=== PATIENT | male | born 1945 | race Caucasian/White ===

== ENCOUNTER 2019-11-30 13:27 | Outpatient (RCR) | payer OTHER | END 2019-11-30 17:00 | disposition home or self-care (01) | PROVIDERS: ATTEND Nurse Practitioner | DX: M25.552 Pain in left hip (principal); M54.5 Low back pain; M25.551 Pain in right hip; F32.9 Major depressive disorder, single episode, unspecified; I10 Essential (primary) hypertension; H91.90 Unspecified hearing loss, unspecified ear; G20 Parkinson's disease ==

== ENCOUNTER → 2020-07-04 | Outpatient (CLI) | payer OTHER | LOC: ORTHO 09:47 | PROVIDERS: ATTEND Orthopaedic Surgery | DX: M51.37 Other intervertebral disc degeneration, lumbosacral region (principal); M16.12 Unilateral primary osteoarthritis, left hip; M17.0 Bilateral primary osteoarthritis of knee ==

== ENCOUNTER 2020-07-28 10:16 | Outpatient (RCR) | payer OTHER | END 2020-07-28 11:01 | disposition home or self-care (01) | PROVIDERS: ATTEND Nurse Practitioner | DX: M25.561 Pain in right knee (principal); M54.16 Radiculopathy, lumbar region; Z98.890 Other specified postprocedural states; Z85.89 Personal history of malignant neoplasm of other organs and systems ==

== ENCOUNTER 2021-08-03 17:10 | Observation (INO) | payer OTHER, MEDICARE ==
[~2021-08-03] VITALS: Ht 180.4 cm; Wt 86.1 kg
[2021-08-03 17:44] LABS: BASOPHILS # (AUTO) 0.1 10^3/uL (0.0-0.1); BASOPHILS % (AUTO) 1 % (0-10); EOSINOPHILS # (AUTO) 0.4 10^3/uL (0.0-0.3); EOSINOPHILS % (AUTO) 4 % (0-10); HEMATOCRIT 49 % (40-54); HEMOGLOBIN 16.9 g/dL (13.3-17.7); LYMPHOCYTES # (AUTO) 2.6 10^3/uL (1.0-4.0); LYMPHOCYTES % (AUTO) 25 % (12-44); MEAN CORPUSCULAR HEMOGLOBIN 34 pg (25-34); MEAN CORPUSCULAR HGB CONC 35 g/dL (32-36); MEAN CORPUSCULAR VOLUME 96 fL (80-99); MEAN PLATELET VOLUME 9.7 fL (9.0-12.2); MONOCYTES # (AUTO) 0.8 10^3/uL (0.0-1.0); MONOCYTES % (AUTO) 8 % (0-12); NEUTROPHILS # (AUTO) 6.8 10^3/uL (1.8-7.8); NEUTROPHILS % (AUTO) 63 % (42-75); PLATELET COUNT 228 10^3/uL (130-400); WHITE BLOOD COUNT 10.7 10^3/uL (4.3-11.0)
--- NOTE | 2021-08-03 17:44 | ED Cardiac General ---
History of Present Illness General Chief Complaint: Cardiac/General Problems Stated Complaint: HIGH BLOOD PRESSURE, RAPID HEART RATE, DIZZINESS Source: patient Exam Limitations: no limitations History of Present Illness Date Seen by Provider: Aug 03, 2021 Time Seen by Provider: 17:27 Initial Comments Patient to the ER by private conveyance with his daughter and chief complaint that he has had some rapid racing heart rate since yesterday when he got a booster shot of Moderna, COVID-19 vaccine. He feels weak tired and like his heart is racing. No chest pain nausea fever chills body aches, or sick contacts. 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 He says he has a thoracic aortic aneurysm that nobody is following. He does not see a networks software consultant. He has no heart history. No history of atrial fibrillation. Not on a blood thinner. He is on medicines for blood pressure, hyperlipidemia, bupropion for PTSD related to [place]. Allergies and Home Medications Allergies Coded Allergies: Vyqewds-XTH-EgA Reductase Inhibitor (Verified Allergy, Unknown, 08/03/21) baclofen (Verified Allergy, Unknown, 08/03/21) Patient Home Medication List Home Medication List Reviewed: Yes Review of Systems Review of Systems Constitutional: No chills, No diaphoresis EENTM: No Blurred Vision, No Double Vision Respiratory: Denies Cough, Denies Orthopnea; Shortness of Air Cardiovascular: Denies Chest Pain; Irregular Heart Rate; Denies Lightheadedness; Palpitations Gastrointestinal: Denies Constipated, Denies Diarrhea, Denies Nausea Genitourinary: Denies Burning, Denies Discharge Musculoskeletal: No back pain, No joint pain Skin: No pruritus, No rash Psychiatric/Neurological: Denies Headache, Denies Numbness All Other Systems Reviewed Negative Unless Noted: Yes Past Dbgfeqc-Zesrit-Tqzlbk Hx Patient Social History Tobacco Use?: No Use of E-Cig and/or Vaping dev: No Substance use?: No Physical Exam Vital Signs Capillary Refill : Height, Weight, BMI Height: '" Weight: lbs. oz. kg; BMI Method: General Appearance: Anxious, Moderate Distress HEENT: PERRL/EOMI, Pharynx Normal, Moist Mucous Membranes Neck: Full Range of Motion, Normal Inspection Respiratory: Lungs Clear, Normal Breath Sounds, No Accessory Muscle Use, No Respiratory Distress Cardiovascular: No No Edema (Trace bipedal edema); Normal Peripheral Pulses, Irregularly Irregular, Tachycardia Gastrointestinal: Normal Bowel Sounds, Non Tender, Soft Extremity: Normal Capillary Refill, Normal Inspection, Pedal Edema (Trace bilateral) Neurologic/Psychiatric: Alert, Oriented x3, Other (Anxious affect) Skin: Normal Color, Warm/Dry Progress/Results/Core Measures Results/Orders Lab Results Laboratory Tests Test 08/03/21 17:25 Range/Units White Blood Count 10.7 4.3-11.0 10^3/uL Red Blood Count 5.05 4.30-5.52 10^6/uL Hemoglobin 16.9 13.3-17.7 g/dL Hematocrit 49 40-54 % Mean Corpuscular Volume 96 80-99 fL Mean Corpuscular Hemoglobin 34 25-34 pg Mean Corpuscular Hemoglobin Concent 35 32-36 g/dL Red Cell Distribution Width 12.3 10.0-14.5 % Platelet Count 228 130-400 10^3/uL Mean Platelet Volume 9.7 9.0-12.2 fL Immature Granulocyte % (Auto) 0 % Neutrophils (%) (Auto) 63 42-75 % Lymphocytes (%) (Auto) 25 12-44 % Monocytes (%) (Auto) 8 0-12 % Eosinophils (%) (Auto) 4 0-10 % Basophils (%) (Auto) 1 0-10 % Neutrophils # (Auto) 6.8 1.8-7.8 10^3/uL Lymphocytes # (Auto) 2.6 1.0-4.0 10^3/uL Monocytes # (Auto) 0.8 0.0-1.0 10^3/uL Eosinophils # (Auto) 0.4 H 0.0-0.3 10^3/uL Basophils # (Auto) 0.1 0.0-0.1 10^3/uL Immature Granulocyte # (Auto) 0.0 0.0-0.1 10^3/uL Sodium Level 141 135-145 MMOL/L Potassium Level 3.9 3.6-5.0 MMOL/L Chloride Level 104 98-107 MMOL/L Carbon Dioxide Level 24 21-32 MMOL/L Anion Gap 13 5-14 MMOL/L Blood Urea Nitrogen 28 H 7-18 MG/DL Creatinine 1.02 0.60-1.30 MG/DL Estimat Glomerular Filtration Rate 72 BUN/Creatinine Ratio 27 Glucose Level 145 H 70-105 MG/DL Calcium Level 9.7 8.5-10.1 MG/DL Corrected Calcium 9.5 8.5-10.1 MG/DL Total Bilirubin 0.6 0.1-1.0 MG/DL Aspartate Amino Transf (AST/SGOT) 22 5-34 U/L Alanine Aminotransferase (ALT/SGPT) < 6 0-55 U/L Alkaline Phosphatase 96 40-136 U/L Troponin I < 0.028 <0.028 NG/ML C-Reactive Protein High Sensitivity 0.16 0.00-0.50 MG/DL B-Type Natriuretic Peptide 130.3 H <100.0 PG/ML Total Protein 7.2 6.4-8.2 GM/DL Albumin 4.3 3.2-4.5 GM/DL My Orders Orders - DWIGHT AARON Continuous Ekg Monitoring (08/03/21 17:13) Ekg Tracing (08/03/21 17:13) Diltiazem Injection (Cardizem Injection) (08/03/21 17:32) Cbc With Automated Diff (08/03/21 17:36) Comprehensive Metabolic Panel (08/03/21 17:36) Hs C Reactive Protein (08/03/21 17:36) Troponin I (08/03/21 17:36) BNP (08/03/21 17:36) Chest 1 View, Ap/Pa Only (08/03/21 17:36) Apixaban Tablet (Eliquis Tablet) (08/03/21 17:45) Diltiazem Drip Pre-Mix (Cardizem Drip Pr (08/03/21 17:45) Diltiazem Injection (Cardizem Injection) (08/03/21 17:45) Medications Given in ED Current Medications Medications Dose Ordered Sig/[place] Route Start Time Stop Time Status Last Admin Dose Admin Apixaban 5 mg ONCE ONCE PO 08/03/21 17:45 08/03/21 17:46 DC 08/03/21 18:01 5 MG Diltiazem HCl 10 mg ONCE ONCE IVP 08/03/21 17:45 08/03/21 17:46 DC 08/03/21 17:44 10 MG Progress Progress Note : Time: 17:43 Progress Note Initial blood pressures were in the 160s coming down to 130 systolic. We will give him 10 mg Cardizem bolus followed by 10 mg/h Cardizem drip. Eliquis 5 mg. A liter of normal saline. We did discuss management of novel atrial fibrillation with rapid ventricular response with the patient and he agrees to interventions and staying in the hospital overnight. Initial ECG Impression Date: Aug 03, 2021 Initial ECG Impression Time: 17:20 Initial ECG Rate: 122 Initial ECG Rhythm: Normal Sinus Initial ECG Intervals: QT (555) Initial ECG Impression: Normal Initial ECG Comparisson: No Previous ECG Available Comment Atrial flutter with rapid ventricular response. Prolonged QTC Diagnostic Imaging Diagonstic Imaging: Xray Plain Films/CT/US/NM/MRI: chest Comments [facility] [place] NAME: LAWRENCE DIAZ JR [facility] REC#: [id number] PT STATUS: ADM Kimberly : 1945 PHYSICIAN: DWIGHT AARON MD ADMIT DATE: 08/03/21/ICU Draft Date of Exam:08/03/21 CHEST 1 VIEW, AP/PA ONLY INDICATION: Shortness of air, tachycardia. COMPARISON: None available. TECHNIQUE: Single frontal radiograph of the chest dated August 03, 2021. FINDINGS: The cardiac silhouette is mildly enlarged. No significant pulmonary vascular congestion. Tortuosity of the descending thoracic aorta. Postsurgical changes are noted within the cervicothoracic spine. Senescent changes of the lungs without focal pulmonary opacity. No significant pleural effusion. No pneumothorax. Scattered osseous degenerative changes without acute osseous abnormality. IMPRESSION: 1. Mild cardiomegaly without overt congestive heart failure. 2. Senescent changes of the lungs without additional superimposed acute cardiopulmonary abnormality. Dictated on workstation # [id number] Dict: 08/03/21 1803 Trans: 08/03/21 1810 PJE [id number] Interpreted by: REMINGTON COYNE MD Electronically signed by: Reviewed: Reviewed by Me Departure Communication (Admissions) Time/Spoke to Admitting Phy: 17:45 1745: Left voicemail 1755: Discussed the case with Dr. Gaxiola and she agrees to observe the patient in the ICU with cardiac consultation. Time/Spoke to Consulting Phy: 17:44 Discussed the case with Dr. Fitch, cardiology and he agrees to consult on the case. Impression Primary Impression: Atrial fibrillation with rapid ventricular response Disposition: ADMITTED INPATIENT Condition: Stable Admissions Decision to Admit Reason: Admit from ER (General) Decision to Admit/Date: Aug 03, 2021 Time/Decision to Admit Time: 17:44 Departure-Patient Inst. Referrals: JAMES STRICKLAND (PCP) Primary Care Physician DWIGHT AARON Aug 03, 2021 17:44
[2021-08-03] MEDS ORDERED: dilTIAZem DRIP PRE-MIX 125 ML IV SCH ×2 (17:45→19:45)
[2021-08-03] MEDS ORDERED: APIXABAN 5 MG (ELIQUIS) TABLET PO ONE (17:45)
[2021-08-03 17:55] LABS: ALANINE AMINOTRANSFERASE < 6 U/L (0-55); ALBUMIN 4.3 GM/DL (3.2-4.5); ALKALINE PHOSPHATASE 96 U/L (40-136); BILIRUBIN,TOTAL 0.6 MG/DL (0.1-1.0); BUN/CREATININE RATIO 27; CALCIUM 9.7 MG/DL (8.5-10.1); CARBON DIOXIDE 24 MMOL/L (21-32); CHLORIDE 104 MMOL/L (98-107); CREATININE SERUM 1.02 MG/DL (0.60-1.30); GFR ESTIMATED 72; GLUCOSE 145 MG/DL (70-105); POTASSIUM 3.9 MMOL/L (3.6-5.0); SODIUM 141 MMOL/L (135-145); TOTAL PROTEIN 7.2 GM/DL (6.4-8.2)
--- NOTE | 2021-08-03 18:10 | Diagnostic Imaging Report ---
INDICATION: Shortness of air, tachycardia. COMPARISON: None available. TECHNIQUE: Single frontal radiograph of the chest dated August 03, 2021. FINDINGS: The cardiac silhouette is mildly enlarged. No significant pulmonary vascular congestion. Tortuosity of the descending thoracic aorta. Postsurgical changes are noted within the cervicothoracic spine. Senescent changes of the lungs without focal pulmonary opacity. No significant pleural effusion. No pneumothorax. Scattered osseous degenerative changes without acute osseous abnormality. IMPRESSION: 1. Mild cardiomegaly without overt congestive heart failure. 2. Senescent changes of the lungs without additional superimposed acute cardiopulmonary abnormality. Dictated by: Dictated on workstation # [id number]
[2021-08-03] MEDS ORDERED: CATHETER FLUSH 10 ML SYR IV PRN (19:45)
[2021-08-03] MEDS ORDERED: LORazepam 1 MG (ATIVAN) TAB PO PRN (19:45)
[2021-08-03] MEDS ORDERED: ACETAMINOPHEN 325 MG TABLET PO PRN (19:45)
[2021-08-03] MEDS ORDERED: ONDANSETRON 4 MG/2 ML (SDV) Z0FRAN IV PRN (19:45)
[2021-08-03] MEDS: APIXABAN 5 MG (ELIQUIS) TABLET PO SCH (21:26)
[2021-08-03] MEDS: CATHETER FLUSH 10 ML SYR IV SCH (22:00)
[2021-08-04] MEDS ORDERED: QUET25TA35 PO ×2 (00:47→11:29)
[2021-08-04] MEDS ORDERED: PRAZ1CAP2 PO ×2 (00:47→11:29)
[2021-08-04] MEDS ORDERED: MEMA10TA57 PO ×2 (00:47→11:29)
[2021-08-04] MEDS ORDERED: MULT400T15 PO (00:47)
[2021-08-04] MEDS ORDERED: BUPR150T28 PO (00:47)
[2021-08-04] MEDS ORDERED: CYCL10TA9 PO ×2 (00:47→11:29)
[2021-08-04] MEDS ORDERED: TRAZ-227 PO ×2 (00:47→11:29)
[2021-08-04] MEDS ORDERED: PROM25TA14 PO (00:47)
[2021-08-04] MEDS ORDERED: VIT1CAPS44 PO ×2 (00:47→11:29)
[2021-08-04] MEDS ORDERED: ACET500S IV (00:47)
[2021-08-04] MEDS ORDERED: GBPN600T PO ×2 (00:47→11:29)
[2021-08-04] MEDS ORDERED: MIRT45TA75 PO ×2 (00:47→11:29)
[2021-08-04] MEDS ORDERED: CARB1TAB19 PO ×2 (00:47→11:29)
[2021-08-04] MEDS ORDERED: SENN-181 PO (00:47)
[2021-08-04] MEDS ORDERED: ASPI-1238 PO ×2 (00:47→11:29)
[2021-08-04] MEDS ORDERED: NAPR-915 PO ×2 (00:47→11:29)
[2021-08-04] MEDS ORDERED: OMEP20TA7 PO (00:47)
[2021-08-04] MEDS ORDERED: DONE10TA41 PO ×2 (00:47→11:29)
[2021-08-04] MEDS ORDERED: LORA10TA7 PO ×2 (00:47→11:29)
[2021-08-04] MEDS ORDERED: SERT-414 PO ×2 (00:47→11:29)
[2021-08-04] MEDS ORDERED: ARIP5TAB57 PO (00:47)
[2021-08-04] MEDS ORDERED: TMSL.4C PO ×2 (00:47→11:29)
[2021-08-04] MEDS ORDERED: METO50TA15 PO ×2 (00:47→11:29)
[2021-08-04] MEDS ORDERED: [UNRECOGNIZED DRUG - CODE] PO (00:47)
[2021-08-04] MEDS ORDERED: ATOR20TA66 PO ×2 (00:47→11:29)
[2021-08-04] MEDS ORDERED: CYAN100088 PO (00:47)
[2021-08-04] MEDS ORDERED: FOLI0.4T6 PO ×2 (00:47→11:29)
[2021-08-04] MEDS ORDERED: FAMO20TA3 PO ×2 (00:47→11:29)
[2021-08-04] MEDS ORDERED: POTA-51 PO ×2 (00:47→11:29)
[2021-08-04 05:13] LABS: BASOPHILS # (AUTO) 0.1 10^3/uL (0.0-0.1); BASOPHILS % (AUTO) 1 % (0-10); EOSINOPHILS # (AUTO) 0.5 10^3/uL (0.0-0.3); EOSINOPHILS % (AUTO) 6 % (0-10); HEMATOCRIT 45 % (40-54); LYMPHOCYTES # (AUTO) 2.5 10^3/uL (1.0-4.0); LYMPHOCYTES % (AUTO) 29 % (12-44); MEAN CORPUSCULAR HEMOGLOBIN 33 pg (25-34); MEAN CORPUSCULAR HGB CONC 33 g/dL (32-36); MEAN CORPUSCULAR VOLUME 99 fL (80-99); MEAN PLATELET VOLUME 9.8 fL (9.0-12.2); MONOCYTES # (AUTO) 0.7 10^3/uL (0.0-1.0); MONOCYTES % (AUTO) 8 % (0-12); NEUTROPHILS # (AUTO) 4.9 10^3/uL (1.8-7.8); NEUTROPHILS % (AUTO) 56 % (42-75); PLATELET COUNT 187 10^3/uL (130-400); WHITE BLOOD COUNT 8.7 10^3/uL (4.3-11.0)
[2021-08-04 05:29] LABS: ALBUMIN 3.7 GM/DL (3.2-4.5); BILIRUBIN,TOTAL 0.6 MG/DL (0.1-1.0); CALCIUM 8.9 MG/DL (8.5-10.1); CREATININE SERUM 0.91 MG/DL (0.60-1.30); PHOSPHORUS 2.6 MG/DL (2.3-4.7); TOTAL PROTEIN 6.1 GM/DL (6.4-8.2)
[2021-08-04] MEDS: CATHETER FLUSH 10 ML SYR IV SCH ×2 (06:05→14:41)
[2021-08-04] MEDS: APIXABAN 5 MG (ELIQUIS) TABLET PO SCH (08:42)
--- NOTE | 2021-08-04 08:42 | Consultation-Cardiology ---
HPI-Cardiology Cardiology Consultation: Date of Consultation 08/04/21 Time Seen by a Provider: 08:15 Date of Admission 08-03-21 Attending Physician Julisa Gaxiola MD Admitting Physician Muriel Villalobos Consulting Physician Nat Fitch MD HPI: Chief Complaint: New onset a-flutter with RVR Mr. Diaz is a 75 yr old male admitted to ICU 5 from the ED with new onset a- flutter with RVR. He has converted to SR. He reports yesterday he was at home when he began to have palpitations. He states he felt weak and SOB at the time. He reports having chest pressure at the time. No syncope or near syncope. No c/o n/v/d. No c/o LE swelling. [facility] [place] [place] He reports he is feeling well at this time. His daughter is at the bedside. Review of Systems-Cardiology Review of Systems Constitutional: No chills, No fever; lightheadedness; No malaise Eyes: No vision change Ears/Nose/Throat: No epistaxis, No recent hearing loss Respiratory: As described under HPI Cardiovascular: As described under HPI Gastrointestinal: No constipation, No diarrhea, No nausea, No vomiting Genitourinary: No dysuria Musculoskeletal: back pain (chronic) Skin: No rash on exposed areas, No ulcerations on exposed areas Psychiatric/Neurological: anxiety; No depression, No seizure, No focal weakness, No syncope All Other Systems Reviewed Negative Unless Noted: Yes XQQ-Yanayf-Jvlcso Hx Patient Social History Smoking Status: Former Smoker Have you traveled recently?: No Alcohol Use?: No Pt feels they are or have been: Yes Tobacco type used: Cigarettes Past Medical History PMH As described under Assessment. Family Medical History Family Medical History: He reports his mother had an CO. He reports his father had a h/o CVA. He reports children x3 with DM. Allergies and Home Medications Allergies Coded Allergies: Vtvmrkx-DDK-HbM Reductase Inhibitor (Verified Allergy, Unknown, 08/03/21) baclofen (Verified Allergy, Unknown, 08/03/21) Patient Home Medication List Acetaminophen (Acetaminophen) 500 Mg/50 Ml Syringe, 500 MG IV TID PRN for PAIN- MILD (1-4) OR TEMPATURE, (Reported) Entered as Reported by: SAUL COREAS on 08/04/2146 Last Action: New Order Aripiprazole (Aripiprazole) 5 Mg Tablet, 7.5 MG PO HS, (Reported) Entered as Reported by: SAUL COREAS on 08/04/2146 Last Action: Last Taken Edited Aspirin (Aspirin EC) 81 Mg Tablet.dr, 81 MG PO DAILY, (Reported) Entered as Reported by: SAUL COREAS on 08/04/2146 Last Action: New Order Atorvastatin Calcium (Atorvastatin Calcium) 20 Mg Tablet, 30 MG PO HS, (Reported) Entered as Reported by: SAUL COREAS on 08/04/2146 Last Action: New Order Bupropion HCl (Bupropion HCl Sr) 150 Mg Tablet.er, 150 MG PO DAILY, (Reported) Entered as Reported by: SAUL COREAS on 08/04/2146 Last Action: New Order Carbidopa/Levodopa (Carbidopa-Levodopa 25-100 Tab) 1 Each Tablet, 1 EACH PO QID, (Reported) Entered as Reported by: SAUL COREAS on 08/04/2146 Last Action: Last Taken Edited Cyanocobalamin (Vitamin B-12) (B-12) 1,000 Mcg Tablet, 1,000 MCG PO DAILY, (Reported) Entered as Reported by: SAUL COREAS on 08/04/2146 Last Action: New Order Cyclobenzaprine HCl (Cyclobenzaprine HCl) 10 Mg Tablet, 10 MG PO BID PRN for MUSCLE SPASMS, (Reported) Entered as Reported by: SAUL COREAS on 08/04/2146 Last Action: New Order Donepezil HCl (Donepezil HCl) 10 Mg Tablet, 15 MG PO DAILY, (Reported) Entered as Reported by: SAUL COREAS on 08/04/2146 Last Action: New Order Famotidine (Acid Postal Clerk (FAMOTIDINE)) 20 Mg Tablet, 20 MG PO BID, (Reported) Entered as Reported by: SAUL COREAS on 08/04/2146 Last Action: New Order Folic Acid (Folic Acid) 0.4 Mg Tablet, 0.4 MG PO DAILY, (Reported) Entered as Reported by: SAUL COREAS on 08/04/2146 Last Action: New Order Gabapentin (Gabapentin) 600 Mg Tablet, 600 MG PO BID, (Reported) Entered as Reported by: SAUL COREAS on 08/04/2146 Last Action: New Order Loratadine (Loratadine) 10 Mg Tablet, 10 MG PO DAILY PRN for Allergies, (Reported) Entered as Reported by: SAUL COREAS on 08/04/2146 Last Action: New Order Memantine HCl (Memantine HCl) 10 Mg Tablet, 10 MG PO BID, (Reported) Entered as Reported by: SAUL COREAS on 08/04/2146 Last Action: New Order Metoprolol Tartrate (Metoprolol Tartrate) 50 Mg Tablet, 50 MG PO BID, (Reported) Entered as Reported by: SAUL COREAS on 08/04/2146 Last Action: New Order Mirtazapine (Mirtazapine) 45 Mg Tablet, 45 MG PO HS, (Reported) Entered as Reported by: SAUL COREAS on 08/04/2146 Last Action: New Order Multivitamin with Folic Acid (Tab-A-Sammy Tablet) 400 Mcg Tablet, 400 MCG PO DAILY, (Reported) Entered as Reported by: SAUL COREAS on 08/04/2146 Last Action: New Order Naproxen (Naproxen) 500 Mg Tablet, 500 MG PO Q12H, (Reported) Entered as Reported by: SAUL COREAS on 08/04/2146 Last Action: New Order Beverly-3/Dha/Epa/Fish Oil (Ultra Beverly-3 Softgel) 1 Each Capsule, 1 EACH PO DAILY, (Reported) Entered as Reported by: SAUL COREAS on 08/04/2146 Last Action: New Order Omeprazole (Omeprazole) 20 Mg Tablet.dr, 20 MG PO DAILY, (Reported) Entered as Reported by: SAUL COREAS on 08/04/2146 Last Action: New Order Potassium Chloride (Potassium Chloride) 20 Meq Tablet.er, 20 MEQ PO DAILY, (Reported) Entered as Reported by: SAUL COREAS on 08/04/2146 Last Action: New Order Prazosin HCl (Prazosin HCl) 1 Mg Capsule, 1 MG PO HS, (Reported) Entered as Reported by: SAUL COREAS on 08/04/2146 Last Action: New Order Promethazine HCl (Promethazine Tablet) 25 Mg Tablet, 25 MG PO Q8H PRN for NAUSEA /VOMITING, (Reported) Entered as Reported by: SAUL COREAS on 08/04/2146 Last Action: New Order Quetiapine Fumarate (Quetiapine Fumarate) 25 Mg Tablet, 25 MG PO HS, (Reported) Entered as Reported by: SAUL COREAS on 08/04/2146 Last Action: New Order Sennosides/Docusate Sodium (Colace 2-in-1 Tablet) 1 Each Tablet, 2 EACH PO DAILY, (Reported) Entered as Reported by: SAUL COREAS on 08/04/2146 Last Action: New Order Sertraline HCl (Sertraline HCl) 100 Mg Tablet, 100 MG PO DAILY, (Reported) Entered as Reported by: SAUL COREAS on 08/04/2146 Last Action: New Order Tamsulosin HCl (Flomax) 0.4 Mg Cap, 0.4 MG PO HS, (Reported) Entered as Reported by: SAUL COREAS on 08/04/2146 Last Action: Last Taken Edited Trazodone HCl (Trazodone HCl) 100 Mg Tablet, 100 MG PO HS PRN for INSOMNIA, (Reported) Entered as Reported by: SAUL COREAS on 08/04/2146 Last Action: New Order Vit C/E/Zn/Coppr/Lutein/Zeaxan (Preservision Areds 2 Softgel) 1 Each Capsule, 1 EACH PO BID, (Reported) Entered as Reported by: SAUL COREAS on 08/04/2146 Last Action: New Order Physical Exam-Cardiology Physical Exam Vital Signs/I&O 08/03/21 08/03/21 08/03/21 08/03/21 20:45 21:00 21:15 21:30 Pulse 73 61 67 67 Resp 32 16 11 6 B/P (MAP) 132/91 130/82 133/83 132/90 Pulse Ox 97 100 97 97 O2 Delivery Room Air 08/03/21 08/03/21 08/03/21 08/03/21 21:45 22:00 22:15 22:30 Pulse 65 58 68 68 Resp 7 15 22 12 B/P (MAP) 148/81 123/91 124/84 113/72 Pulse Ox 94 96 93 92 O2 Delivery Room Air 08/03/21 08/03/21 08/03/21 08/03/21 22:45 23:00 23:13 23:15 Temp 36.0 Pulse 65 62 64 Resp 10 16 13 B/P (MAP) 102/72 94/64 86/60 Pulse Ox 92 93 91 O2 Delivery Room Air 08/03/21 08/03/21 08/03/21 08/04/21 23:30 23:45 23:59 00:00 Pulse 68 71 72 Resp 13 14 14 B/P (MAP) 94/66 109/71 Pulse Ox 92 93 94 O2 Delivery Room Air Room Air 08/04/21 08/04/21 08/04/21 08/04/21 00:15 00:30 00:45 01:00 Pulse 68 68 68 68 Resp 12 8 15 15 B/P (MAP) 109/71 96/68 119/74 101/68 Pulse Ox 94 94 95 93 O2 Delivery Room Air 08/04/21 08/04/21 08/04/21 08/04/21 01:00 01:15 01:30 01:45 Pulse 70 68 76 68 Resp 13 15 15 B/P (MAP) 101/68 121/74 120/71 Pulse Ox 93 94 93 08/04/21 08/04/21 08/04/21 08/04/21 02:00 02:15 02:30 02:34 Pulse 68 67 65 Resp 15 11 22 B/P (MAP) 109/73 109/73 89/62 88/67 Pulse Ox 93 94 92 O2 Delivery Room Air 08/04/21 08/04/21 08/04/21 08/04/21 03:00 03:15 03:30 03:45 Pulse 63 65 65 66 Resp 12 13 13 11 B/P (MAP) 116/76 116/76 108/70 110/71 Pulse Ox 92 91 93 95 O2 Delivery Room Air 08/04/21 08/04/21 08/04/21 08/04/21 04:00 04:00 04:15 04:30 Pulse 70 66 64 Resp 13 14 13 B/P (MAP) 103/58 103/58 101/58 Pulse Ox 95 93 92 O2 Delivery Room Air Room Air 08/04/21 08/04/21 08/04/21 08/04/21 04:45 05:00 05:15 05:30 Pulse 65 62 66 Resp 13 13 12 B/P (MAP) 143/80 124/70 124/70 128/68 Pulse Ox 95 95 96 O2 Delivery Room Air 08/04/21 08/04/21 08/04/21 08/04/21 05:45 06:00 06:15 06:30 Pulse 80 66 68 63 Resp 22 13 14 10 B/P (MAP) 128/65 132/74 135/81 113/76 Pulse Ox 97 96 94 95 O2 Delivery Room Air 08/04/21 08/04/21 08/04/21 08/04/21 06:45 07:00 07:00 07:15 Pulse 70 64 63 62 Resp 7 11 13 B/P (MAP) 129/76 126/67 118/63 Pulse Ox 94 95 93 O2 Delivery Room Air 08/04/21 08/04/21 08/04/21 08/04/21 07:30 07:45 08:00 08:02 Temp 36.5 Pulse 61 61 Resp 11 12 B/P (MAP) 103/61 108/59 Pulse Ox 91 91 O2 Delivery Room Air 08/04/21 00:00 Intake Total 275 ml Output Total 0 ml Balance 275 ml Capillary Refill : Less Than 3 Seconds Constitutional: AAO x 3, well-developed, well-nourished HEENT: PERRL, hearing is well preserved, oral hygience is good Neck: No carotid bruit; carotid pulses are 2 + bilaterally Respiratory: No accessory muscle use, No respiratory distress; chest expansion is symmetric, chest is bilaterally symmetric, rhonchi (scattered) Cardiovascular: regular rate-rhythm; No JVD; S1 and S2 Gastrointestinal: No tender; soft, round, audible bowel sounds Extremities: no lower extremity edema bilateral Neurologic/Psychiatric: grossly intact (moves all extremities) Skin: No rash on exposed areas, No ulcerations on exposed areas Data Review Labs Laboratory Tests 08/03/21 17:25: White Blood Count 10.7, Red Blood Count 5.05, Hemoglobin 16.9, Hematocrit 49, M ml Corpuscular Volume 96, Mean Corpuscular Hemoglobin 34, Mean Corpuscular Hemoglobin Concent 35, Red Cell Distribution Width 12.3, Platelet Count 228, Mean Platelet Volume 9.7, Immature Granulocyte % (Auto) 0, Neutrophils (%) (Auto) 63, Lymphocytes (%) (Auto) 25, Monocytes (%) (Auto) 8, Eosinophils (%) (Auto) 4, Basophils (%) (Auto) 1, Neutrophils # (Auto) 6.8, Lymphocytes # (Auto) 2.6, Monocytes # (Auto) 0.8, Eosinophils # (Auto) 0.4H, Basophils # (Auto) 0.1, Immature Granulocyte # (Auto) 0.0, Sodium Level 141, Potassium Level 3.9, Chloride Level 104, Carbon Dioxide Level 24, Anion Gap 13, Blood Urea Nitrogen 28H, Creatinine 1.02, Estimat Glomerular Filtration Rate 72, BUN/Creatinine Ratio 27, Glucose Level 145H, Calcium Level 9.7, Corrected Calcium 9.5, Total Bilirubin 0.6, Aspartate Amino Transf (AST/SGOT) 22, Alanine Aminotransferase (ALT/SGPT) < 6, Alkaline Phosphatase 96, Troponin I < 0.028, C-Reactive Protein High Sensitivity 0.16, B-Type Natriuretic Peptide 130.3H, Total Protein 7.2, Albumin 4.3 08/04/21 04:45: White Blood Count 8.7, Red Blood Count 4.55, Hemoglobin 15.0, Hematocrit 45, Mean Corpuscular Volume 99, Mean Corpuscular Hemoglobin 33, Mean Corpuscular Hemoglobin Concent 33, Red Cell Distribution Width 12.7, Platelet Count 187, Mean Platelet Volume 9.8, Immature Granulocyte % (Auto) 0, Neutrophils (%) (Auto) 56, Lymphocytes (%) (Auto) 29, Monocytes (%) (Auto) 8, Eosinophils (%) (Auto) 6, Basophils (%) (Auto) 1, Neutrophils # (Auto) 4.9, Lymphocytes # (Auto) 2.5, Monocytes # (Auto) 0.7, Eosinophils # (Auto) 0.5H, Basophils # (Auto) 0.1, Immature Granulocyte # (Auto) 0.0, Sodium Level 140, Potassium Level 4.0, Chloride Level 105, Carbon Dioxide Level 24, Anion Gap 11, Blood Urea Nitrogen 27H, Creatinine 0.91, Estimat Glomerular Filtration Rate 82, BUN/Creatinine Ratio 30, Glucose Level 103, Calcium Level 8.9, Corrected Calcium 9.1, Total Bilirubin 0.6, Aspartate Amino Transf (AST/SGOT) 21, Alanine Aminotransferase (ALT/SGPT) 14, Alkaline Phosphatase 79, Total Protein 6.1L, Albumin 3.7, Phosphorus Level 2.6, Magnesium Level 2.0 Laboratory Tests 08/03/21 17:25 08/04/21 04:45 Radiology NAME: LAWRENCE DIAZ [facility] REC#: [id number] PT STATUS: ADM Kimberly : 1945 PHYSICIAN: DWIGHT AARON MD ADMIT DATE: 08/03/21/ICU Signed Date of Exam:08/03/21 CHEST 1 VIEW, AP/PA ONLY INDICATION: Shortness of air, tachycardia. COMPARISON: None available. TECHNIQUE: Single frontal radiograph of the chest dated August 03, 2021. FINDINGS: The cardiac silhouette is mildly enlarged. No significant pulmonary vascular congestion. Tortuosity of the descending thoracic aorta. Postsurgical changes are noted within the cervicothoracic spine. Senescent changes of the lungs without focal pulmonary opacity. No significant pleural effusion. No pneumothorax. Scattered osseous degenerative changes without acute osseous abnormality. IMPRESSION: 1. Mild cardiomegaly without overt congestive heart failure. 2. Senescent changes of the lungs without additional superimposed acute cardiopulmonary abnormality. Dictated by: Dictated on workstation # [id number] Dict: 08/03/211802 Trans: 08/03/21 185 PJE [id number] Interpreted by: REMINGTON COYNE MD Electronically signed by: REMINGTON COYNE MD 08/03/21 ECG Impression ECG Initial ECG Impression: Atrial Fibrillation w/RVR A/P-Cardiology Assessment/Admission Diagnosis A-flutter with RVR - first dx on ECG of 08-03-2021 at the [facility] ED - converted to SR - OAC with Eliquis initiated on 08-03-21 DANETTE - CPAP tx - has not been compliant the last month per pt report HTN - controlled HLD - statin tx - [facility] G[facility]D - PPI tx Tobaccoism - 1-2 cigs per day - cessation advised 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
--- NOTE | 2021-08-04 08:46 | Tele-ICU Progress Note ---
Subjective Date Seen by a Provider: Aug 04, 2021 Time Seen by a Provider: 07:30 Subjective/Events-last exam This virtual visit was conducted using real time audio/video. Thank you for asking us to see this patient for afib/RVR, no previous afib hx. HPC: Recent events: Converted to NSR. PE: VSS HR 62 NSR. O2 sat 93% on RA HEENT: No obvious masses, adenopathy or JVD. Chest: clear to auscultation. CV: RRR S1 S2 No murmur or added sounds. Abd: Non-tender. Bowel sounds Y. : Unremarkable. Peña N. INTERNET ARCHITECT/psychiatric: Alert and oriented, grossly intact. No obvious focal findings. Extremities: No edema. Capillary refill < 3 seconds. Skin: unremarkable. Results: Elevated BUN 27, BNP 130.3. CXR clear. A/P: Afib converted. Available chart/ vitals / labs / images reviewed. Video assessment done using teleICU camera, rest of exam as per RN. Critical Care: critically ill patient. Preston D/Cd, on [facility]. Consider transfer. Discussed with TYLER Santos. Asked RN to reach out to eICU if any questions or c oncerns later. Time spent with patient/coordination of care with other health professionals (mins): 15 From: Anthony Brown MD Sepsis Event Evaluation Height, Weight, BMI Height: '" Weight: lbs. oz. kg; 26.27 BMI Method: Exam Exam Patient acknowledged, consented, and participated in this virtual visit which was conducted using real time audio/video Vital Signs Date Time Temp Pulse Resp B/P (MAP) Pulse Ox O2 Delivery O2 Flow Rate FiO2 08/04/21 08:02 Room Air 08/04/21 08:00 36.5 08/04/21 07:45 61 12 108/59 91 08/04/21 07:30 61 11 103/61 91 08/04/21 07:15 62 13 118/63 93 08/04/21 07:00 63 11 126/67 95 Room Air 08/04/21 07:00 64 08/04/21 06:45 70 7 129/76 94 08/04/21 06:30 63 10 113/76 95 08/04/21 06:15 68 14 135/81 94 08/04/21 06:00 66 13 132/74 96 Room Air 08/04/21 05:45 80 22 128/65 97 08/04/21 05:30 66 12 128/68 96 08/04/21 05:15 124/70 08/04/21 05:00 62 13 124/70 95 Room Air 08/04/21 04:45 65 13 143/80 95 08/04/21 04:30 64 13 101/58 92 08/04/21 04:15 66 14 103/58 93 08/04/21 04:00 Room Air 08/04/21 04:00 70 13 103/58 95 Room Air 08/04/21 03:45 66 11 110/71 95 08/04/21 03:30 65 13 108/70 93 08/04/21 03:15 65 13 116/76 91 08/04/21 03:00 63 12 116/76 92 Room Air 08/04/21 02:34 65 22 88/67 92 08/04/21 02:30 67 11 89/62 94 08/04/21 02:15 109/73 08/04/21 02:00 68 15 109/73 93 Room Air 08/04/21 01:45 68 15 120/71 93 08/04/21 01:30 76 15 121/74 94 08/04/21 01:15 68 13 101/68 93 08/04/21 01:00 70 08/04/21 01:00 68 15 101/68 93 Room Air 08/04/21 00:45 68 15 119/74 95 08/04/21 00:30 68 8 96/68 94 08/04/21 00:15 68 12 109/71 94 08/04/21 00:00 72 14 109/71 94 Room Air 08/03/21 23:59 Room Air 08/03/21 23:45 71 14 94/66 93 08/03/21 23:30 68 13 92 08/03/21 23:15 64 13 86/60 91 08/03/21 23:13 36.0 08/03/21 23:00 62 16 94/64 93 Room Air 08/03/21 22:45 65 10 102/72 92 08/03/21 22:30 68 12 113/72 92 08/03/21 22:15 68 22 124/84 93 08/03/21 22:00 58 15 123/91 96 Room Air 08/03/21 21:45 65 7 148/81 94 08/03/21 21:30 67 6 132/90 97 08/03/21 21:15 67 11 133/83 97 08/03/21 21:00 61 16 130/82 100 Room Air 08/03/21 20:45 73 32 132/91 97 08/03/21 20:30 58 16 148/87 100 Room Air 08/03/21 20:15 51 14 136/86 97 Room Air 08/03/21 20:10 Room Air 08/03/21 20:00 59 16 125/83 97 Room Air 08/03/21 19:45 58 13 125/85 97 Room Air 08/03/21 19:30 65 20 156/89 96 Room Air 08/03/21 19:25 61 27 165/84 98 08/03/21 19:10 Room Air 08/03/21 19:00 64 08/03/21 18:21 66 18 120/89 96 Room Air 08/03/21 17:30 37.0 135 20 176/131 (146) 97 Room Air I & O 08/04/21 07:00 Intake Total 475 ml Output Total 0 ml Balance 475 ml Height & Weight Height: '" Weight: lbs. oz. kg; 26.27 BMI Method: General Appearance: No Apparent Distress, Anxious, Moderate Distress HEENT: PERRL/EOMI, Pharynx Normal, Moist Mucous Membranes Neck: Full Range of Motion, Normal Inspection Respiratory: Lungs Clear, Normal Breath Sounds, No Accessory Muscle Use, No Respiratory Distress Cardiovascular: No No Edema (Trace bipedal edema); Normal Peripheral Pulses, Irregularly Irregular, Tachycardia Capillary Refill: Less Than 3 Seconds Peripheral Pulses: 1+ Dorsalis Pedis (R), 1+ Left Dors-Pedis (L) Extremity: Normal Capillary Refill, Normal Inspection, Pedal Edema (Trace bilateral) Neurologic/Psychiatric: Alert, Oriented x3, Other (Anxious affect) Skin: Normal Color, Warm/Dry Results Lab Laboratory Tests 08/03/21 17:25 08/04/21 04:45 Assessment/Plan Assessment/Plan See free text. Critical Care: Critically Ill Patient ANTHONY BROWN MD Aug 04, 2021 08:46
--- NOTE | 2021-08-04 09:27 | Short Stay Summary-Hospitalist ---
History of Present Illness HPI/Chief Complaint Is a 75-year-old male with past medical history of hypertension, hyperlipidemia, PTSD who presented to the emergency department due to elevated blood pressure and racing heart rate. He states that on 08/02 he was in [place] the [place] and received a Moderna booster after having previously received a Zia & Zia Covid vaccine. Yesterday his home health aide came to set up his pills and check his vitals and noticed that his blood pressure was elevated and his heart rate was very fast. The aide recommended he seek evaluation in the emergency room. His heart rate was 35 on arrival and he was started on a Cardizem drip after completing a bolus. He was admitted to the ICU for further management. Last night he converted to sinus rhythm and has remained in sinus with good rate control. He has no complaints at this time and is requesting discharge home. Source: patient Date Seen 08/04/21 Time Seen by a Provider: 09:27 Attending Physician Ortiz Hernandez MD PCP Muriel Villalobos Referring Physician Date of Admission Aug 03, 2021 at 17:50 Home Medications & Allergies Home Medications Reviewed patient Home Medication Reconciliation performed by pharmacy medication reconciliations pharmacy picking technician and/or nursing. Patients Allergies have been reviewed. Allergies Allergies Coded Allergies Joyqphb-BYH-DkX Reductase Inhibitor (Verified Allergy, Unknown, 08/03/21) baclofen (Verified Allergy, Unknown, 08/03/21) Past Jcxnqnl-Mbaanr-Zqcwup Hx Patient Social History Tobacco Use?: Yes Tobacco type used: Cigarettes Smoking Status: Former Smoker Smokeless Tobacco Frequency: Never a User Use of E-Cig and/or Vaping dev: No Substance use?: No Alcohol Use?: No Pt feels they are or have been: Yes Immunizations Up To Date First/Initial COVID19 Vaccinat: 12/19/2020 Zia & Zia Second COVID19 Vaccination Eliazar: 08/02 Moderna Tetanus Booster (TDap): More Than 5 Years Hepatitis A: No Hepatitis B: Yes Current Status Advance Directives: No Communicates: Verbally Primary Language: Montenegrin Preferred Spoken Language: Montenegrin Is interpretation needed?: Patient declined Implanted or Applied Medical D: CPAP Past Medical History High Cholesterol, Hypertension PTSD Family Medical History Reviewed Nursing Family Hx No Pertinent Family Hx Review of Systems Constitutional: No chills, No fever EENTM: no symptoms reported Respiratory: no symptoms reported Cardiovascular: see HPI; No edema, No Hx of Intervention; palpitations Gastrointestinal: no symptoms reported Genitourinary: no symptoms reported Musculoskeletal: no symptoms reported Skin: no symptoms reported Psychiatric/Neurological: No Symptoms Reported Physical Exam Physical Exam Vital Signs Vital Signs - First Documented 08/03/21 17:30 Temp 37.0 Pulse 135 Resp 20 B/P (MAP) 176/131 (146) Pulse Ox 97 O2 Delivery Room Air Capillary Refill : Less Than 3 Seconds Height, Weight, BMI Height: '" Weight: lbs. oz. kg; 26.27 BMI Method: General Appearance: No Apparent Distress, WD/WN, Moderate Distress HEENT: PERRL/EOMI, Moist Mucous Membranes; No Scleral Icterus (L), No Scleral Icterus (R) Neck: Normal Inspection, Supple Respiratory: Lungs Clear, No Accessory Muscle Use, No Respiratory Distress Cardiovascular: Regular Rate, Rhythm, No Murmur, Normal Peripheral Pulses Gastrointestinal: Normal Bowel Sounds, Non Tender, Soft Extremity: Normal Capillary Refill, Normal Inspection, Non Tender, No Pedal Edema Neurologic/Psychiatric: Alert, Oriented x3, Normal Mood/Affect Skin: Normal Color, Warm/Dry Results Results/Procedures Labs Laboratory Tests 08/03/21 17:25 08/04/21 04:45 Patient resulted labs reviewed. Imaging: Reviewed Imaging Report Imaging [facility] [place], [place] NAME: [facility] REC#: [id number] PT STATUS: ADM Kimberly : 1945 PHYSICIAN: DWIGHT AARON MD ADMIT DATE: 08/03/21/ICU Signed Date of Exam:08/03/21 CHEST 1 VIEW, AP/PA ONLY INDICATION: Shortness of air, tachycardia. COMPARISON: None available. TECHNIQUE: Single frontal radiograph of the chest dated August 03, 2021. FINDINGS: The cardiac silhouette is mildly enlarged. No significant pulmonary vascular congestion. Tortuosity of the descending thoracic aorta. Postsurgical changes are noted within the cervicothoracic spine. Senescent changes of the lungs without focal pulmonary opacity. No significant pleural effusion. No pneumothorax. Scattered osseous degenerative changes without acute osseous abnormality. IMPRESSION: 1. Mild cardiomegaly without overt congestive heart failure. 2. Senescent changes of the lungs without additional superimposed acute cardiopulmonary abnormality. Dictated by: Dictated on workstation # [id number] Dict: 08/03/213 Trans: 08/03/211854 [id number] Interpreted by: REMINGTON COYNE MD Electronically signed by: REMINGTON COYNE MD 08/03/211854 Short Stay Diagnosis Discharge Diagnosis-Short Stay Admission Diagnosis a-fib with RVR Final Discharge Diagnosis a-fib with RVR Conclusion Plan a-fib with RVR New onset Converted to sinus rhythm last night Cardiology consulted, appreciate recs Continue Eliquis Echo ordered Can DC home following echo for outpatient follow up with Dr Fitch Appears to already take metoprolol so can likely continue that at home HTN HLD BP well controlled for hospital Diagnosis/Problems Diagnosis/Problems (1) Atrial fibrillation with rapid ventricular response Status: Acute Clinical Quality Measures AMI/AHF: ASA po Prior to arrival: Yes ORTIZ HERNANDEZ MD Aug 04, 2021 09:27
[2021-08-04] MEDS ORDERED: OMEP20CA18 PO (11:29)
[2021-08-04] MEDS ORDERED: AMAN100C18 PO (11:29)
[2021-08-04] MEDS ORDERED: CYAN-41 PO (11:29)
[2021-08-04] MEDS ORDERED: SENN-145 PO (11:29)
[2021-08-04] MEDS ORDERED: POLY17PO6 PO (11:29)
[2021-08-04] MEDS ORDERED: OMEG-160 PO (11:29)
[2021-08-04] MEDS ORDERED: ACET-2267 PO (11:29)
[2021-08-04] MEDS ORDERED: POLY15DR27 OU (11:29)
[2021-08-04] MEDS ORDERED: BUPR150T24 PO (11:29)
[2021-08-04] MEDS ORDERED: BUPR150T14 PO (11:36)
[2021-08-04] MEDS ORDERED: APIX5TAB PO ×2 (12:11→14:43)
--- NOTE | 2021-08-04 12:12 | Discharge Inst-Simple/Standard ---
Discharge Inst-Standard Discharge Medications New, Converted or Re-Newed RX: Transmitted to Pharmacy Patient Instructions/Follow Up Plan of Care/Instructions/FU: Please contineu to take your medications as written. Please follow up with your primary care doctor and Dr Fitch to follow up this hospital stay. Activity as Tolerated: Yes Discharge Diet: No Restrictions Return to The Hospital For: Chest pain, heart racing, shortness of breath, weakness, if you feel you are getting worse. ORTIZ HERNANDEZ MD Aug 04, 2021 12:11
--- NOTE | 2021-08-04 14:30 | Consultation-Cardiology ---
HPI-Cardiology Cardiology Consultation: Date of Consultation 08/04/21 Time Seen by a Provider: 09:30 Date of Admission Attending Physician Julisa Gaxiola MD Admitting Physician Muriel Villalobos Consulting Physician MYNOR WATSON MD, MA, FACP, FACC, FSCAI, CCDS HPI: Chief Complaint: New onset a-flutter with RVR Mr. Coronel is a 75 yr old male admitted to ICU 5 from the ED with new onset a- flutter with RVR. He has converted to SR. He reports yesterday he was at home when he began to have palpitations. He states he felt weak and SOB at the time. He reports having chest pressure at the time. No syncope or near syncope. No c/o n/v/d. No c/o LE swelling. [facility] [place], [place] He reports he is feeling well at this time. His daughter is at the bedside. Review of Systems-Cardiology Review of Systems Constitutional: No chills, No fever; lightheadedness; No malaise Eyes: No vision change Ears/Nose/Throat: No epistaxis, No recent hearing loss Respiratory: As described under HPI Cardiovascular: As described under HPI Gastrointestinal: No constipation, No diarrhea, No nausea, No vomiting Genitourinary: No dysuria Musculoskeletal: back pain (chronic) Skin: No rash on exposed areas, No ulcerations on exposed areas Psychiatric/Neurological: anxiety; No depression, No seizure, No focal weakness, No syncope All Other Systems Reviewed Negative Unless Noted: Yes LTB-[id number]-[id number] Hx Patient Social History Smoking Status: Former Smoker Have you traveled recently?: No Alcohol Use?: No Pt feels they are or have been: Yes Tobacco type used: Cigarettes Past Medical History PMH As described under Assessment. Family Medical History Family Medical History: He reports his mother had an OH. He reports his father had a h/o CVA. He reports children x3 with DM. Allergies and Home Medications Allergies Coded Allergies: [id number] Reductase Inhibitor (Verified Allergy, Unknown, 08/03/21) baclofen (Verified Allergy, Unknown, 08/03/21) Patient Home Medication List Home Medication List Reviewed: Yes Acetaminophen (Tylenol Extra Strength) 500 Mg Tablet, 1,000 MG PO TID PRN for PAIN-MILD (1-4), (Reported) Entered as Reported by: DAVID STUART on 08/04/211128 Last Action: Reviewed Amantadine HCl (Amantadine) 100 Mg Capsule, 100 MG PO BID, (Reported) Entered as Reported by: DAVID STUART on 08/04/211128 Last Action: Reviewed Artificial Tears (Artificial Tears) 15 Ml Soln, 1-2 DROPS OU BID PRN for DRY EYES, (Reported) Entered as Reported by: DAVID STUART on 08/04/211128 Last Action: Reviewed Aspirin (Aspirin EC) 81 Mg Tablet.dr, 81 MG PO DAILY, (Reported) Entered as Reported by: DAVID STUART on 08/04/211128 Last Action: Reviewed Atorvastatin Calcium (Atorvastatin Calcium) 20 Mg Tablet, 10 MG PO HS, (Reported) Entered as Reported by: DAVID STUART on 08/04/211128 Last Action: Reviewed Bupropion HCl (Bupropion HCl Sr) 150 Mg Tablet.er, 150 MG PO DAILY, (Reported) Entered as Reported by: DAVID STUART on 08/04/211135 Last Action: Reviewed Carbidopa/Levodopa (Carbidopa-Levodopa 25-100 Tab) 1 Each Tablet, 2 EACH PO QID, (Reported) Entered as Reported by: DAVID STUART on 08/04/211128 Last Action: Reviewed Cyanocobalamin (Vitamin B-12) (Vitamin B-12) 1,000 Mcg Tablet, 1,000 MCG PO DAILY, (Reported) Entered as Reported by: DAVID STUART on 08/04/211128 Last Action: Reviewed Cyclobenzaprine HCl (Cyclobenzaprine HCl) 10 Mg Tablet, 5 MG PO BID PRN for MUSCLE SPASMS, (Reported) Entered as Reported by: DAVID STUART on 08/04/211128 Last Action: Reviewed Donepezil HCl (Donepezil HCl) 10 Mg Tablet, 10 MG PO DAILY, (Reported) Entered as Reported by: DAVID STUART on 08/04/211128 Last Action: Reviewed Famotidine (Acid Greenhouse Technician (FAMOTIDINE)) 20 Mg Tablet, 20 MG PO BID, (Reported) Entered as Reported by: DAVID STUART on 08/04/211128 Last Action: Reviewed Folic Acid (Folic Acid) 0.4 Mg Tablet, 0.4 MG PO DAILY, (Reported) Entered as Reported by: DAVID STUART on 08/04/211128 Last Action: Reviewed Gabapentin (Gabapentin) 600 Mg Tablet, 600 MG PO BID, (Reported) Entered as Reported by: DAVID STUART on 08/04/211128 Last Action: Reviewed Loratadine (Loratadine) 10 Mg Tablet, 10 MG PO DAILY PRN for ALLERGY SYMPTOMS, (Reported) Entered as Reported by: DAVID STUART on 08/04/211128 Last Action: Reviewed Memantine HCl (Memantine HCl) 10 Mg Tablet, 10 MG PO BID, (Reported) Entered as Reported by: DAVID STUART on 08/04/211128 Last Action: Reviewed Metoprolol Tartrate (Metoprolol Tartrate) 50 Mg Tablet, 25 MG PO BID, (Reported) Entered as Reported by: DAVID STUART on 08/04/211128 Last Action: Reviewed Mirtazapine (Mirtazapine) 45 Mg Tablet, 45 MG PO HS, (Reported) Entered as Reported by: DAVID STUART on 08/04/211128 Last Action: Reviewed Naproxen (Naproxen) 500 Mg Tablet, 500 MG PO BID PRN for PAIN-MILD (1-4), (Reported) Entered as Reported by: DAVID STUART on 08/04/211128 Last Action: Reviewed Malone-3/Dha/Epa/Fish Oil (Fish Oil 1,000 mg Softgel) 1 Each Capsule, 1 EACH PO DAILY, (Reported) Entered as Reported by: DAVID STUART on 08/04/211128 Last Action: Reviewed Omeprazole (Omeprazole) 20 Mg Capsule.dr, 20 MG PO DAILY, (Reported) Entered as Reported by: DAVID STUART on 08/04/211128 Last Action: Reviewed Polyethylene Glycol 3350 (Miralax) 17 Gm Powd.pack, 17 GM PO DAILY PRN for CONSTIPATION-2ND LINE, (Reported) Entered as Reported by: DAVID STUART on 08/04/211128 Last Action: Reviewed Potassium Chloride (Potassium Chloride) 20 Meq Tablet.er, 20 MEQ PO DAILY, (Reported) Entered as Reported by: DAVID STUART on 08/04/211128 Last Action: Reviewed Prazosin HCl (Prazosin HCl) 1 Mg Capsule, 1 MG PO HS, (Reported) Entered as Reported by: DAVID STUART on 08/04/211128 Last Action: Reviewed Quetiapine Fumarate (Quetiapine Fumarate) 25 Mg Tablet, 25 MG PO HS, (Reported) Entered as Reported by: DAVID STUART on 08/04/211128 Last Action: Reviewed Sennosides/Docusate Sodium (Senna S Tablet) 1 Each Tablet, 2 EACH PO DAILY, (Reported) Entered as Reported by: DAVID STUART on 08/04/211128 Last Action: Reviewed Sertraline HCl (Sertraline HCl) 100 Mg Tablet, 50 MG PO DAILY, (Reported) Entered as Reported by: DAVID STUART on 08/04/211128 Last Action: Reviewed Tamsulosin HCl (Flomax) 0.4 Mg Cap, 0.4 MG PO HS, (Reported) Entered as Reported by: DAVID STUART on 08/04/211128 Last Action: Reviewed Trazodone HCl (Trazodone HCl) 100 Mg Tablet, 100 MG PO HS, (Reported) Entered as Reported by: DAVID STUART on 08/04/211128 Last Action: Reviewed Vit C/E/Zn/Coppr/Lutein/Zeaxan (Preservision Areds 2 Softgel) 1 Each Capsule, 1 EACH PO BID, (Reported) Entered as Reported by: DAVID STUART on 08/04/211128 Last Action: Reviewed Discontinued Medications Acetaminophen (Acetaminophen) 500 Mg/50 Ml Syringe, 500 MG IV TID PRN for PAIN- MILD (1-4) OR TEMPATURE, (Reported) Discontinued Reason: Duplicate Order Entered as Reported by: SAUL COREAS on 08/04/2146 Last Action: Discontinued Aripiprazole (Aripiprazole) 5 Mg Tablet, 7.5 MG PO HS, (Reported) Discontinued Reason: Duplicate Order Entered as Reported by: SAUL COREAS on 08/04/2146 Last Action: Discontinued Aspirin (Aspirin EC) 81 Mg Tablet.dr, 81 MG PO DAILY, (Reported) Discontinued Reason: Duplicate Order Entered as Reported by: SAUL COREAS on 08/04/2146 Last Action: Discontinued Atorvastatin Calcium (Atorvastatin Calcium) 20 Mg Tablet, 30 MG PO HS, (Reported) Discontinued Reason: Duplicate Order Entered as Reported by: SAUL COREAS on 08/04/2146 Last Action: Discontinued Bupropion HCl (Bupropion HCl Sr) 150 Mg Tablet.er, 150 MG PO DAILY, (Reported) Discontinued Reason: Duplicate Order Entered as Reported by: SAUL COREAS on 08/04/2146 Last Action: Discontinued Carbidopa/Levodopa (Carbidopa-Levodopa 25-100 Tab) 1 Each Tablet, 1 EACH PO QID, (Reported) Discontinued Reason: Duplicate Order Entered as Reported by: SAUL COREAS on 08/04/2146 Last Action: Discontinued Cyanocobalamin (Vitamin B-12) (B-12) 1,000 Mcg Tablet, 1,000 MCG PO DAILY, (Reported) Discontinued Reason: Duplicate Order Entered as Reported by: SAUL COREAS on 08/04/2146 Last Action: Discontinued Cyclobenzaprine HCl (Cyclobenzaprine HCl) 10 Mg Tablet, 10 MG PO BID PRN for MUSCLE SPASMS, (Reported) Discontinued Reason: Duplicate Order Entered as Reported by: SAUL COREAS on 08/04/2146 Last Action: Discontinued Donepezil HCl (Donepezil HCl) 10 Mg Tablet, 15 MG PO DAILY, (Reported) Discontinued Reason: Duplicate Order Entered as Reported by: SAUL COREAS on 08/04/2146 Last Action: Discontinued Famotidine (Acid Greenhouse Technician (FAMOTIDINE)) 20 Mg Tablet, 20 MG PO BID, (Reported) Discontinued Reason: Duplicate Order Entered as Reported by: SAUL COREAS on 08/04/2146 Last Action: Discontinued Folic Acid (Folic Acid) 0.4 Mg Tablet, 0.4 MG PO DAILY, (Reported) Discontinued Reason: Duplicate Order Entered as Reported by: SAUL COREAS on 08/04/2146 Last Action: Discontinued Gabapentin (Gabapentin) 600 Mg Tablet, 600 MG PO BID, (Reported) Discontinued Reason: Duplicate Order Entered as Reported by: SAUL COREAS on 08/04/2146 Last Action: Discontinued Loratadine (Loratadine) 10 Mg Tablet, 10 MG PO DAILY PRN for Allergies, (Reported) Discontinued Reason: Duplicate Order Entered as Reported by: SAUL COREAS on 08/04/2146 Last Action: Discontinued Memantine HCl (Memantine HCl) 10 Mg Tablet, 10 MG PO BID, (Reported) Discontinued Reason: Duplicate Order Entered as Reported by: SAUL COREAS on 08/04/2146 Last Action: Discontinued Metoprolol Tartrate (Metoprolol Tartrate) 50 Mg Tablet, 50 MG PO BID, (Reported) Discontinued Reason: Duplicate Order Entered as Reported by: SAUL COREAS on 08/04/2146 Last Action: Discontinued Mirtazapine (Mirtazapine) 45 Mg Tablet, 45 MG PO HS, (Reported) Discontinued Reason: Duplicate Order Entered as Reported by: SAUL COREAS on 08/04/2146 Last Action: Discontinued Multivitamin with Folic Acid (Tab-A-Sammy Tablet) 400 Mcg Tablet, 400 MCG PO DAILY, (Reported) Discontinued Reason: Duplicate Order Entered as Reported by: SAUL COREAS on 08/04/2146 Last Action: Discontinued Naproxen (Naproxen) 500 Mg Tablet, 500 MG PO Q12H, (Reported) Discontinued Reason: Duplicate Order Entered as Reported by: SAUL COREAS on 08/04/2146 Last Action: Discontinued Malone-3/Dha/Epa/Fish Oil (Ultra Malone-3 Softgel) 1 Each Capsule, 1 EACH PO DAILY, (Reported) Discontinued Reason: Duplicate Order Entered as Reported by: SAUL COREAS on 08/04/2146 Last Action: Discontinued Omeprazole (Omeprazole) 20 Mg Tablet.dr, 20 MG PO DAILY, (Reported) Discontinued Reason: Duplicate Order Entered as Reported by: SAUL COREAS on 08/04/2146 Last Action: Discontinued Potassium Chloride (Potassium Chloride) 20 Meq Tablet.er, 20 MEQ PO DAILY, (Reported) Discontinued Reason: Duplicate Order Entered as Reported by: SAUL COREAS on 08/04/2146 Last Action: Discontinued Prazosin HCl (Prazosin HCl) 1 Mg Capsule, 1 MG PO HS, (Reported) Discontinued Reason: Duplicate Order Entered as Reported by: SAUL COREAS on 08/04/2146 Last Action: Discontinued Promethazine HCl (Promethazine Tablet) 25 Mg Tablet, 25 MG PO Q8H PRN for NAUSEA/VOMITING, (Reported) Discontinued Reason: No Longer Taking Entered as Reported by: SAUL COREAS on 08/04/2146 Last Action: Discontinued Quetiapine Fumarate (Quetiapine Fumarate) 25 Mg Tablet, 25 MG PO HS, (Reported) Discontinued Reason: Duplicate Order Entered as Reported by: SAUL COREAS on 08/04/2146 Last Action: Discontinued Sennosides/Docusate Sodium (Colace 2-in-1 Tablet) 1 Each Tablet, 2 EACH PO DAILY, (Reported) Discontinued Reason: Duplicate Order Entered as Reported by: SAUL COREAS on 08/04/2146 Last Action: Discontinued Sertraline HCl (Sertraline HCl) 100 Mg Tablet, 100 MG PO DAILY, (Reported) Discontinued Reason: Duplicate Order Entered as Reported by: SAUL COREAS on 08/04/2146 Last Action: Discontinued Tamsulosin HCl (Flomax) 0.4 Mg Cap, 0.4 MG PO HS, (Reported) Discontinued Reason: Duplicate Order Entered as Reported by: SAUL COREAS on 08/04/2146 Last Action: Discontinued Trazodone HCl (Trazodone HCl) 100 Mg Tablet, 100 MG PO HS PRN for INSOMNIA, (Reported) Discontinued Reason: Duplicate Order Entered as Reported by: SAUL COREAS on 08/04/2146 Last Action: Discontinued Vit C/E/Zn/Coppr/Lutein/Zeaxan (Preservision Areds 2 Softgel) 1 Each Capsule, 1 EACH PO BID, (Reported) Discontinued Reason: Duplicate Order Entered as Reported by: SAUL COREAS on 08/04/2146 Last Action: Discontinued Physical Exam-Cardiology Physical Exam Vital Signs/I&O 08/04/21 08/04/21 08/04/21 08/04/21 02:30 02:34 03:00 03:15 Pulse 67 65 63 65 Resp 11 22 12 13 B/P (MAP) 89/62 88/67 116/76 116/76 Pulse Ox 94 92 92 91 O2 Delivery Room Air 08/04/21 08/04/21 08/04/21 08/04/21 03:30 03:45 04:00 04:00 Pulse 65 66 70 Resp 13 11 13 B/P (MAP) 108/70 110/71 103/58 Pulse Ox 93 95 95 O2 Delivery Room Air Room Air 08/04/21 08/04/21 08/04/21 08/04/21 04:15 04:30 04:45 05:00 Pulse 66 64 65 62 Resp 14 13 13 13 B/P (MAP) 103/58 101/58 143/80 124/70 Pulse Ox 93 92 95 95 O2 Delivery Room Air 11/02/1708/04/21 08/04/21 08/04/21 05:15 05:30 05:45 06:00 Pulse 66 80 66 Resp 12 22 13 B/P (MAP) 124/70 128/68 128/65 132/74 Pulse Ox 96 97 96 O2 Delivery Room Air 08/04/21 08/04/21 08/04/21 08/04/21 06:15 06:30 06:45 07:00 Pulse 68 63 70 64 Resp 14 10 7 B/P (MAP) 135/81 113/76 129/76 Pulse Ox 94 95 94 08/04/21 08/04/21 08/04/21 08/04/21 07:00 07:15 07:30 07:45 Pulse 63 62 61 61 Resp 11 13 11 12 B/P (MAP) 126/67 118/63 103/61 108/59 Pulse Ox 95 93 91 91 O2 Delivery Room Air 08/04/21 08/04/21 08/04/21 08/04/21 08:00 08:00 08:02 08:15 Temp 36.5 Pulse 61 69 Resp 12 14 B/P (MAP) 107/61 123/59 Pulse Ox 92 95 O2 Delivery Room Air Room Air 08/04/21 08/04/21 08/04/21 08/04/21 08:30 08:45 08:48 09:00 Pulse 78 75 72 Resp 21 24 9 B/P (MAP) 164/96 152/91 150/94 Pulse Ox 95 95 91 97 O2 Delivery Room Air Room Air 08/04/21 08/04/21 08/04/21 08/04/21 10:00 11:00 12:00 12:00 Pulse 80 83 76 Resp 12 10 16 B/P (MAP) 144/89 125/72 109/59 Pulse Ox 95 95 94 O2 Delivery Room Air Room Air Room Air Room Air 08/04/21 13:00 Temp 36.8 Pulse 72 Resp 9 B/P (MAP) 150/94 Pulse Ox 97 O2 Delivery Room Air 08/04/21 00:00 Intake Total 275 ml Output Total 0 ml Balance 275 ml Capillary Refill : Less Than 3 Seconds Constitutional: AAO x 3, well-developed, well-nourished HEENT: PERRL, hearing is well preserved, oral hygience is good Neck: No carotid bruit; carotid pulses are 2 + bilaterally Respiratory: No accessory muscle use, No respiratory distress; chest expansion is symmetric, chest is bilaterally symmetric, rhonchi (scattered) Cardiovascular: regular rate-rhythm; No JVD; S1 and S2 Gastrointestinal: No tender; soft, round, audible bowel sounds Extremities: no lower extremity edema bilateral Neurologic/Psychiatric: grossly intact (moves all extremities) Skin: No rash on exposed areas, No ulcerations on exposed areas Data Review Labs Laboratory Tests 08/03/21 17:25: White Blood Count 10.7, Red Blood Count 5.05, Hemoglobin 16.9, Hematocrit 49, Mean Corpuscular Volume 96, Mean Corpuscular Hemoglobin 34, Mean Corpuscular Hemoglobin Concent 35, Red Cell Distribution Width 12.3, Platelet Count 228, Mean Platelet Volume 9.7, Immature Granulocyte % (Auto) 0, Neutrophils (%) (Auto) 63, Lymphocytes (%) (Auto) 25, Monocytes (%) (Auto) 8, Eosinophils (%) (Auto) 4, Basophils (%) (Auto) 1, Neutrophils # (Auto) 6.8, Lymphocytes # (Auto) 2.6, Monocytes # (Auto) 0.8, Eosinophils # (Auto) 0.4H, Basophils # (Auto) 0.1, Immature Granulocyte # (Auto) 0.0, Sodium Level 141, Potassium Level 3.9, Chloride Level 104, Carbon Dioxide Level 24, Anion Gap 13, Blood Urea Nitrogen 28H, Creatinine 1.02, Estimat Glomerular Filtration Rate 72, BUN/Creatinine Ratio 27, Glucose Level 145H, Calcium Level 9.7, Corrected Calcium 9.5, Total Bilirubin 0.6, Aspartate Amino Transf (AST/SGOT) 22, Alanine Aminotransferase (ALT/SGPT) < 6, Alkaline Phosphatase 96, Troponin I < 0.028, C-Reactive Protein High Sensitivity 0.16, B-Type Natriuretic Peptide 130.3H, Total Protein 7.2, Albumin 4.3 08/04/21 04:45: White Blood Count 8.7, Red Blood Count 4.55, Hemoglobin 15.0, Hematocrit 45, Mean Corpuscular Volume 99, Mean Corpuscular Hemoglobin 33, Mean Corpuscular Hem oglobin Concent 33, Red Cell Distribution Width 12.7, Platelet Count 187, Mean Platelet Volume 9.8, Immature Granulocyte % (Auto) 0, Neutrophils (%) (Auto) 56, Lymphocytes (%) (Auto) 29, Monocytes (%) (Auto) 8, Eosinophils (%) (Auto) 6, Basophils (%) (Auto) 1, Neutrophils # (Auto) 4.9, Lymphocytes # (Auto) 2.5, Monocytes # (Auto) 0.7, Eosinophils # (Auto) 0.5H, Basophils # (Auto) 0.1, Immature Granulocyte # (Auto) 0.0, Sodium Level 140, Potassium Level 4.0, Chloride Level 105, Carbon Dioxide Level 24, Anion Gap 11, Blood Urea Nitrogen 27H, Creatinine 0.91, Estimat Glomerular Filtration Rate 82, BUN/Creatinine Ratio 30, Glucose Level 103, Calcium Level 8.9, Corrected Calcium 9.1, Total Bilirubin 0.6, Aspartate Amino Transf (AST/SGOT) 21, Alanine Aminotransferase (ALT/SGPT) 14, Alkaline Phosphatase 79, Total Protein 6.1L, Albumin 3.7, Phosphorus Level 2.6, Magnesium Level 2.0 A/P-Cardiology Assessment/Admission Diagnosis A-flutter with RVR - first dx on ECG of 08-03-2021 at the [facility] ED, self-converted to SR - OAC with Eliquis initiated on 08-03-21 - echo on 08/04/21: LVEF 55-60%, mild biatrial enlargement, mild MR, pulmonary artery systolic pressure is estimated to be 20-25 mmHg. 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
[2021-08-04 15:14] VITALS: BP 168/88
== END 2021-08-04 15:14 | disposition home or self-care (01) ==
LOC: EDUNIT# 17:10 → ER 17:13 → ICU 17:50
PROVIDERS: ADMIT Family Medicine; ATTEND Family Medicine
DX: I48.92 Unspecified atrial flutter (principal); I48.91 Unspecified atrial fibrillation; G47.33 Obstructive sleep apnea (adult) (pediatric); I10 Essential (primary) hypertension; E78.5 Hyperlipidemia, unspecified; K21.9 Gastro-esophageal reflux disease without esophagitis; M54.9 Dorsalgia, unspecified; G89.29 Other chronic pain; G20 Parkinson's disease; E78.00 Pure hypercholesterolemia, unspecified; F43.10 Post-traumatic stress disorder, unspecified; I34.0 Nonrheumatic mitral (valve) insufficiency; F17.210 Nicotine dependence, cigarettes, uncomplicated; Z98.1 Arthrodesis status; Z86.718 Personal history of other venous thrombosis and embolism; Z79.899 Other long term (current) drug therapy; Z88.8 Allergy status to other drugs, medicaments and biological substances; Z86.711 Personal history of pulmonary embolism; Z11.2 Encounter for screening for other bacterial diseases; Z82.49 Family history of ischemic heart disease and other diseases of the circulatory system; Z91.19 Patient's noncompliance with other medical treatment and regimen
CPT/HCPCS: 36415; 71045; 80053; 83735; 83880; 84100; 84484; 85025; 86141; 87081; 93005; 93306; 96374; G0378

== ENCOUNTER → 2021-09-19 | Outpatient (CLI) | payer OTHER ==
[~2021-09-19] VITALS: Ht 180 cm; Wt 86.0 kg
[~2021-09-19] MED LIST: ACET-2267 PO; ACET500S IV; AMAN100C20 PO; APIX5TAB PO; ARIP5TAB57 PO; ASPI-1238 PO; ATOR20TA66 PO; BUPR150T14 PO; BUPR150T24 PO; BUPR150T28 PO; CARB1TAB19 PO; CYAN-41 PO; CYAN100088 PO; CYCL10TA25 PO; DONE10TA41 PO; FAMO20TA3 PO; FOLI0.4T6 PO; GBPN600T PO; LORA10TA7 PO; MEMA10TA57 PO; METO50TA15 PO; MIRT45TA75 PO; MULT400T15 PO; NAPR-915 PO; OMEG-160 PO; OMEP20CA18 PO; OMEP20TA7 PO; POLY15DR27 OU; POLY17PO6 PO; POTA-51 PO; PRAZ1CAP2 PO; PROM25TA14 PO; QUET25TA35 PO; REGADENOSON 0.4 MG/5 ML SYR (LEXISCAN) IV ONE; SENN-145 PO; SENN-181 PO; SERT-414 PO; TMSL.4C PO; TRAZ-227 PO; VIT1CAPS44 PO; [UNRECOGNIZED DRUG - CODE] PO
[2021-09-19] MEDS: CATHETER FLUSH 10 ML SYR IV PRN ×2 (08:10→09:33)
[2021-09-19 09:31] VITALS: BP 155/77
--- NOTE | 2021-09-20 00:37 | STRESS TEST ---
DATE OF SERVICE: 09/19/2021 RESTING AND POST REGADENOSON TECHNETIUM-99M TETROFOSMIN SPECT CT IMAGING ORDERING PHYSICIAN: Dr. Fitch. PRIMARY PHYSICIAN: Muriel Jacobsen APRN CLINICAL DIAGNOSIS: Palpitations. Baseline images were carried out after injection of 10.68 mCi of technetium-99m Tetrofosmin. This was followed by 0.4 mg regadenoson and 31.4 mCi of technetium-99m Tetrofosmin for stress imaging. The electrocardiogram showed sinus rhythm at baseline. The electrocardiogram did not change significantly with regadenoson infusion. Review of images at rest and following stress does not indicate perfusion defects consistent with significant myocardial ischemia or infarction. Gated images show normal global left ventricular systolic function with normal regional wall motion. Left ventricular ejection fraction is calculated to be 53%. Left ventricular end-diastolic volume is 98 mL. TID is absent (1.01). CONCLUSIONS: 1. No evidence of any significant myocardial ischemia or infarction on this study. 2. Normal regional wall motion. 3. Normal global left ventricular systolic function with a calculated ejection fraction of 53%. Job ID: [id number] DocumentID: [id number] Dictated Date: 09/19/2021 21:48:26 Soda Maker Date: 09/20/2021 00:36:03 Dictated By: MYNOR FITCH MD, MA, FACP, FACC,
== END ==
LOC: CARD 08:30
PROVIDERS: ATTEND Internal Medicine Cardiovascular Disease
DX: R00.2 Palpitations (principal)
CPT/HCPCS: 78452; 93017

== ENCOUNTER 2021-10-17 10:58 | Emergency (ER) | payer OTHER ==
[~2021-10-17] VITALS: Ht 180 cm; Wt 86.0 kg
[~2021-10-17 10:58] MED LIST changes: -REGADENOSON 0.4 MG/5 ML SYR (LEXISCAN) IV ONE
--- NOTE | 2021-10-17 11:25 | ED Lower Extremity ---
General Chief Complaint: Lower Extremity Stated Complaint: R LEG PAIN/SWOLLEN Nursing Triage Note: PT PRESENTS TO ED VIA POV FROM HOME WITH COMPLAINTS OF R KNEE PAIN AFTER LIFTING HIS LEG UP AND HEARING A "POPPING" NOISE COMMING FROM HIS KNEE ON 10/10/21. PT REPORTS PAIN CONTINUES AND HE HAS NOTICED SWELLING THAT GOES DOWN TO HIS ANKLE. Source: patient Exam Limitations: no limitations (PATI TRACEY APRN) History of Present Illness Date Seen by Provider: Oct 17, 2021 Time Seen by Provider: 11:23 Initial Comments To ER with right knee and lower leg pain and swelling. This began a few days ago while he was putting on a pair of jeans and he felt a popping sensation in his right knee. Primarily this was in the posterior aspect. Subsequently he developed some swelling and pain down the back of his right lower leg. He does take Eliquis for atrial fibrillation but denies any trauma other than just bending his leg to put his jeans on. No fevers or chills. Onset: last week Severity: moderate Pain/Injury Location: right leg, right knee Method of Injury: unknown Modifying Factors: Worse With Movement (PATI TRACEY APRN) Allergies and Home Medications Allergies Coded Allergies: Zwtilnw-HXX-CsN Reductase Inhibitor (Verified Allergy, Unknown, 08/03/21) baclofen (Verified Allergy, Unknown, 08/03/21) Patient Home Medication List Home Medication List Reviewed: Yes (PATI TRACEY APRN) Acetaminophen (Tylenol Extra Strength) 500 Mg Tablet, 1,000 MG PO TID PRN for PAIN-MILD (1-4), (Reported) Entered as Reported by: DAVID STUART on 08/04/21 1129 Amantadine HCl (Amantadine) 100 Mg Capsule, 100 MG PO BID, (Reported) Entered as Reported by: DAVID STUART on 08/04/21 1129 Apixaban (Eliquis) 5 Mg Tablet, 5 MG PO BID Prescribed by: ORTIZ HERNANDEZ on 08/04/21 1443 Artificial Tears (Artificial Tears) 15 Ml Soln, 1-2 DROPS OU BID PRN for DRY EYES, (Reported) Entered as Reported by: DAVID STUART on 08/04/21 1129 Aspirin (Aspirin EC) 81 Mg Tablet.dr, 81 MG PO DAILY, (Reported) Entered as Reported by: DAVID STUART on 08/04/21 112 Atorvastatin Calcium (Atorvastatin Calcium) 20 Mg Tablet, 10 MG PO HS, (Reported) Entered as Reported by: DAVID STUART on 08/04/21 112 Bupropion HCl (Bupropion HCl Sr) 150 Mg Tablet.er, 150 MG PO DAILY, (Reported) Entered as Reported by: DAVID STUART on 08/04/21 1136 Carbidopa/Levodopa (Carbidopa-Levodopa 25-100 Tab) 1 Each Tablet, 2 EACH PO QID, (Reported) Entered as Reported by: DAVID STUART on 08/04/21 112 Cyanocobalamin (Vitamin B-12) (Vitamin B-12) 1,000 Mcg Tablet, 1,000 MCG PO DAILY, (Reported) Entered as Reported by: DAVID STUART on 08/04/211128 Cyclobenzaprine HCl (Cyclobenzaprine HCl) 10 Mg Tablet, 5 MG PO BID PRN for MUSCLE SPASMS, (Reported) Entered as Reported by: DAVID STUART on 08/04/211128 Donepezil HCl (Donepezil HCl) 10 Mg Tablet, 10 MG PO DAILY, (Reported) Entered as Reported by: DAVID STUART on 08/04/211128 Famotidine (Acid Partition Assembler (FAMOTIDINE)) 20 Mg Tablet, 20 MG PO BID, (Reported) Entered as Reported by: DAVID STUART on 08/04/211128 Folic Acid (Folic Acid) 0.4 Mg Tablet, 0.4 MG PO DAILY, (Reported) Entered as Reported by: DAVID STUART on 08/04/211128 Gabapentin (Gabapentin) 600 Mg Tablet, 600 MG PO BID, (Reported) Entered as Reported by: DAVID STUART on 08/04/21 112 Loratadine (Loratadine) 10 Mg Tablet, 10 MG PO DAILY PRN for ALLERGY SYMPTOMS, (Reported) Entered as Reported by: DAVID STUART on 08/04/211128 Memantine HCl (Memantine HCl) 10 Mg Tablet, 10 MG PO BID, (Reported) Entered as Reported by: DAVID STUART on 08/04/21 112 Metoprolol Tartrate (Metoprolol Tartrate) 50 Mg Tablet, 25 MG PO BID, (Reported) Entered as Reported by: DAVID STUART on 08/04/211128 Mirtazapine (Mirtazapine) 45 Mg Tablet, 45 MG PO HS, (Reported) Entered as Reported by: DAVID STUART on 08/04/211128 Naproxen (Naproxen) 500 Mg Tablet, 500 MG PO BID PRN for PAIN-MILD (1-4), (Reported) Entered as Reported by: DAVID STUART on 08/04/211128 [place]-3/Dha/Epa/Fish Oil (Fish Oil 1,000 mg Softgel) 1 Each Capsule, 1 EACH PO DAILY, (Reported) Entered as Reported by: DAVID STUART on 08/04/211128 Omeprazole (Omeprazole) 20 Mg Capsule.dr, 20 MG PO DAILY, (Reported) Entered as Reported by: DAVID STUART on 08/04/211128 Oxycodone HCl/Acetaminophen (Percocet 5-325 mg Tablet) 1 Each Tablet, 1 TAB PO Q4H PRN for PAIN-MODERATE (5-7) Prescribed by: PATI TRACEY on 10/17/21 1233 Polyethylene Glycol 3350 (Miralax) 17 Gm Powd.pack, 17 GM PO DAILY PRN for CONSTIPATION-2ND LINE, (Reported) Entered as Reported by: DAVID STUART on 08/04/211128 Potassium Chloride (Potassium Chloride) 20 Meq Tablet.er, 20 MEQ PO DAILY, (Reported) Entered as Reported by: DAVID STUART on 08/04/211128 Prazosin HCl (Prazosin HCl) 1 Mg Capsule, 1 MG PO HS, (Reported) Entered as Reported by: DAVID STUART on 08/04/211128 Quetiapine Fumarate (Quetiapine Fumarate) 25 Mg Tablet, 25 MG PO HS, (Reported) Entered as Reported by: DAVID STUART on 08/04/211128 Sennosides/Docusate Sodium (Senna S Tablet) 1 Each Tablet, 2 EACH PO DAILY, (Reported) Entered as Reported by: DAVID STUART on 08/04/211128 Sertraline HCl (Sertraline HCl) 100 Mg Tablet, 50 MG PO DAILY, (Reported) Entered as Reported by: DAVID STUART on 08/04/211128 Tamsulosin HCl (Flomax) 0.4 Mg Cap, 0.4 MG PO HS, (Reported) Entered as Reported by: DAVID STUART on 08/04/21 112 Trazodone HCl (Trazodone HCl) 100 Mg Tablet, 100 MG PO HS, (Reported) Entered as Reported by: DAVID STUART on 08/04/21 112 Vit C/E/Zn/Coppr/Lutein/Zeaxan (Preservision Areds 2 Softgel) 1 Each Capsule, 1 EACH PO BID, (Reported) Entered as Reported by: DAVID STUART on 08/04/21 112 Review of Systems Constitutional: see HPI EENTM: see HPI Respiratory: no symptoms reported Cardiovascular: no symptoms reported Genitourinary: no symptoms reported Musculoskeletal: no symptoms reported Skin: no symptoms reported Psychiatric/Neurological: No Symptoms Reported (PATI TRACEY APRN) Past Ccjjiiq-Lplgcl-Lilnmi Hx Patient Social History Tobacco Use?: Yes Tobacco type used: Cigarettes Smoking Status: Current Someday Smoker Substance use?: No Alcohol Use?: No Pt feels they are or have been: No (PATI TRACEY APRN) Immunizations Up To Date First/Initial COVID19 Vaccinat: 08/02 Moderna Second COVID19 Vaccination Eliazar: 08/02 Moderna Third COVID19 Vaccination Date: 08/02 Moderna (PATI TRACEY APRN) Past Medical History Surgery/Hospitalization HX: bilat carpal tunnel, tonsil, lwr abd sx in [place] due injury, cataracts bilat eyes PMH: [place] High Cholesterol, Hypertension PTSD (PATI TRACEY APRN) Family Medical History No Pertinent Family Hx (PATI TRACEY APRN) Physical Exam Vital Signs Vital Signs - First Documented 10/17/21 11:07 Temp 36.8 Pulse 73 Resp 18 B/P (MAP) 167/93 (117) Pulse Ox 98 (DEREK DELEON MD) Vital Signs Capillary Refill : Less Than 3 Seconds (PATI TRACEY APRN) Height, Weight, BMI Height: '" Weight: lbs. oz. kg; 26.00 BMI Method: General Appearance: WD/WN, no apparent distress HEENT: PERRL/EOMI, normal ENT inspection Neck: non-tender, full range of motion Respiratory: no respiratory distress, no accessory muscle use Gastrointestinal: normal bowel sounds, non tender, soft Hips: bilateral hip non-tender, bilateral hip normal inspection, bilateral hip normal range of motion Legs: right leg other (Right leg from the knee down is quite swollen as compared to the left. Normal color without erythema or ecchymosis. Joint line is tender to palpation but there is no palpable joint effusion.) Knees: bilateral knee non-tender, bilateral knee normal inspection, bilateral knee normal range of motion Ankles: bilateral ankle non-tender, bilateral ankle normal inspection, bilateral ankle normal range of motion Feet: bilateral foot non-tender, bilateral foot normal inspection, bilateral foot normal range of motion Neurologic/Psychiatric: alert, normal mood/affect, oriented x 3 Skin: normal color, warm/dry (PATI TRACEY APRN) Procedures/Interventions Additional Procedures: Arthrocentesis Aspirating Progress With patient sitting on the edge of the bed and area at the joint line just lateral to the patellar tendon was identified marked with a skin pen, scrubbed with 3 Betadine swabs which were allowed to dry then anesthetized with 0.25 mL of lidocaine using a 27-gauge needle sterile technique. Then a 5 cc syringe was used to draw up 4 mL of 1% lidocaine without epinephrine and 1 mL (40 mg) of triamcinolone. This was inserted into the joint space using a 25-gauge needle under sterile technique. (PATI TRACEY APRN) Progress/Results/Core Measures Results/Orders Medications Given in ED Current Medications Medications Dose Ordered Sig/[place] Route Start Time Stop Time Status Last Admin Dose Admin Lidocaine HCl 5 ml ONCE ONCE INJ 10/17/21 12:45 10/17/21 12:46 DC 10/17/21 12:45 5 ML Oxycodone/ Acetaminophen 1 tab ONCE ONCE PO 10/17/21 11:30 10/17/21 11:31 DC 10/17/21 11:34 1 TAB Triamcinolone Acetonide 40 mg ONCE ONCE IA 10/17/21 12:45 10/17/21 12:46 DC 10/17/21 12:45 40 MG (DEREK DELEON MD) Vital Signs/I&O 10/17/21 10/17/21 11:07 13:05 Temp 36.8 Pulse 73 70 Resp 18 18 B/P (MAP) 167/93 (117) 162/90 Pulse Ox 98 97 (DEREK DELEON MD) Blood Pressure Mean: 117 Departure Communication (Admissions) building tech reports negative for DVT. Would suspect that he has had a ruptured Corona's cyst. I will send him home with some Percocet for pain. I did offer him an intra-articular injection of steroid and local anesthetic and he would like to get that. NAME: LAWRENCE DIAZ JR [facility] REC#: [id number] PT STATUS: REG ER : 1945 PHYSICIAN: PATI TRACEY APRN ADMIT DATE: 10/17/21/ER Draft Date of Exam:10/17/21 KNEE, RIGHT, 3 VIEWS CLINICAL INDICATION: Patient with knee pain after lifting his leg up and hearing a popping noise coming from his knee on 10/10/2021. EXAM: X-ray of the right knee, three views. COMPARISON: X-ray of the right knee dated 05/12/2009. FINDINGS: There is no acute fracture or dislocation. There is slight progression of npkj-de-jyxlbksp hypertrophic tricompartmental spurs with the lateral compartment affected the most. There is no knee effusion. There is prepatellar soft tissue swelling. There is moderate lateral compartment narrowing and mild medial compartment narrowing on these non-weightbearing views. IMPRESSION: There is slight progression of tricompartmental osteoarthritis of the right knee. Dictated on workstation # [id number] Dict: 10/17/21 1159 Trans: 10/17/21 1204 [id number] Interpreted by: REGINE HOLLINS MD Electronically signed by: NAME: LAWRENCE DIAZ JR [facility] REC#: [id number] PT STATUS: REG ER : 1945 PHYSICIAN: PATI TRACEY APRN ADMIT DATE: 10/17/21/ER Draft Date of Exam:10/17/21 US VENOUS LOWER EXT RT PROCEDURE: US right lower extremity venous. TECHNIQUE: Multiple real-time grayscale images were obtained over the right lower extremity in various projections. Additional spectral analysis and color Doppler duplex images were also obtained. INDICATION: Right leg swelling. FINDINGS: There is no evidence of right lower extremity DVT. Right lower extremity deep venous system shows normal compressibility with normal response to augmentation and Valsalva. No fluid collection or mass is detected. IMPRESSION: No evidence of right lower extremity DVT. Dictated on workstation # [id number] Dict: 10/17/21 1237 Trans: 10/17/21 1243 [id number] Interpreted by: TAWANNA ANDERSEN MD Electronically signed by: (PATI TRACEY APRN) Impression Primary Impression: Osteoarthritis, knee Additional Impression: Ruptured Bakers cyst Disposition: HOME, SELF-CARE Condition: Stable Departure-Patient Inst. Decision time for Depature: 12:29 (PATI TRACEY APRN) Referrals: NO,LOCAL PHYSICIAN (PCP) Primary Care Physician JAMES STRICKLAND (Family) Primary Care Physician VIVI COOPER MD, TERRY D MD ZAFUTA, MICHAEL P MD Patient Instructions: Corona's Cyst (DC) Add. Discharge Instructions: 1. Follow up with an orthopedic surgeon of your choosing,, a list has been provided for you. Return to ER for any concerns. Medication as directed. All discharge instructions reviewed with patient and/or family. Voiced understanding. Scripts Oxycodone HCl/Acetaminophen (Percocet 5-325 mg Tablet) 1 Each Tablet 1 TAB PO Q4H PRN for PAIN-MODERATE (5-7) MDD 6 TABS for 7 Days, #10 TAB Prov: PATI TRACEY APRN 10/17/21 ATTENDING PHYSICIAN NOTE: I was physically present as attending physician in the emergency department during the care of this patient, but I was not directly involved in the decision making or delivery of care for this patient. (DEREK DELEON MD) PATI TRACEY APRN Oct 17, 2021 11:24 DEREK DELEON MD Oct 17, 2021 19:13
[2021-10-17] MEDS ORDERED: oxyCODONE/APAP 5/325MG (PERCOCET 5) TABLET PO ONE (11:30)
--- NOTE | 2021-10-17 12:04 | Diagnostic Imaging Report ---
CLINICAL INDICATION: Patient with knee pain after lifting his leg up and hearing a popping noise coming from his knee on 10/10/2021. EXAM: X-ray of the right knee, three views. COMPARISON: X-ray of the right knee dated 05/12/2009. FINDINGS: There is no acute fracture or dislocation. There is slight progression of mlxw-hl-rqwkhdoz hypertrophic tricompartmental spurs with the lateral compartment affected the most. There is no knee effusion. There is prepatellar soft tissue swelling. There is moderate lateral compartment narrowing and mild medial compartment narrowing on these non-weightbearing views. IMPRESSION: There is slight progression of tricompartmental osteoarthritis of the right knee. Dictated by: Dictated on workstation # [id number]
[2021-10-17] MEDS ORDERED: OXYC1TAB87 PO (12:33)
--- NOTE | 2021-10-17 12:44 | Diagnostic Imaging Report ---
PROCEDURE: US right lower extremity venous. TECHNIQUE: Multiple real-time grayscale images were obtained over the right lower extremity in various projections. Additional spectral analysis and color Doppler duplex images were also obtained. INDICATION: Right leg swelling. FINDINGS: There is no evidence of right lower extremity DVT. Right lower extremity deep venous system shows normal compressibility with normal response to augmentation and Valsalva. No fluid collection or mass is detected. IMPRESSION: No evidence of right lower extremity DVT. Dictated by: Dictated on workstation # [id number]
[2021-10-17] MEDS ORDERED: TRIAMCINOLONE ACET (KENALOG-40) 40 MG/ML 1 ML VIAL IA ONE (12:45)
[2021-10-17] MEDS ORDERED: LIDOCAINE 1% INJ 20 ML VIAL INJ ONE (12:45)
[2021-10-17 13:05] VITALS: BP 162/90
== END 2021-10-17 13:05 | disposition home or self-care (01) ==
LOC: EDUNIT# 10:58 → ER 11:01
DX: M17.11 Unilateral primary osteoarthritis, right knee (principal); M66.0 Rupture of popliteal cyst; G20 Parkinson's disease; I10 Essential (primary) hypertension; E78.00 Pure hypercholesterolemia, unspecified; F17.210 Nicotine dependence, cigarettes, uncomplicated; Z79.82 Long term (current) use of aspirin; Z79.01 Long term (current) use of anticoagulants; Z79.899 Other long term (current) drug therapy
CPT/HCPCS: 73562; 99284

== ENCOUNTER 2021-12-22 09:18 | Outpatient (RCR) | payer OTHER ==
[~2021-12-22 09:18] MED LIST changes: +OXYC1TAB87 PO
== END 2021-12-28 | disposition home or self-care (01) ==
PROVIDERS: ATTEND Nurse Practitioner
DX: M54.50 Low back pain, unspecified (principal); I10 Essential (primary) hypertension

== ENCOUNTER 2021-12-22 09:18 | Outpatient (RCR) | payer OTHER | END 2021-12-28 | disposition home or self-care (01) | PROVIDERS: ATTEND Nurse Practitioner | DX: M17.11 Unilateral primary osteoarthritis, right knee (principal); M71.21 Synovial cyst of popliteal space [Baker], right knee; M54.50 Low back pain, unspecified; I10 Essential (primary) hypertension ==

== ENCOUNTER 2022-01-10 10:37 | Outpatient (RCR) | payer OTHER ==
[~2022-01-10 10:37] MED LIST changes: +BUPR-105 PO; -BUPR150T14 PO; +OMEP20TA56 PO; -OMEP20TA7 PO
== END 2022-01-27 | disposition home or self-care (01) ==
PROVIDERS: ATTEND Nurse Practitioner
DX: M54.50 Low back pain, unspecified (principal); I10 Essential (primary) hypertension

== ENCOUNTER → 2022-01-26 | Outpatient (CLI) | payer OTHER ==
--- NOTE | 2022-01-26 10:40 | Diagnostic Imaging Report ---
PROCEDURE: CT abdomen and pelvis without contrast. TECHNIQUE: Multiple contiguous axial images were obtained through the abdomen and pelvis without the use of intravenous contrast. Auto Exposure Controls were utilized during the CT exam to meet ALARA standards for radiation dose reduction. INDICATION: Left lower quadrant pain, constipation, recent colonoscopy. FINDINGS: There is no free air or pathological retroperitoneal gas collection. No findings of viscus perforation. There is no evidence for mesenteric or bowel wall hematoma. The unopacified spleen appeared unremarkable. There is air-containing normal appendix. There is no evidence for diverticulitis. There is no hydroureteronephrosis. There is aortoiliac nonaneurysmal atherosclerotic vascular calcification. Liver, gallbladder, bile ducts, adrenals and pancreas negative. No pneumatosis, no free gas. No acute bony pathology. The lung bases nonacute. IMPRESSION: 1. No evidence for postprocedural complication. No obstruction, inflammatory process, hemorrhage, free air or acute abnormalities. Dictated by: Dictated on workstation # [id number]
== END ==
LOC: RAD 09:45
PROVIDERS: ATTEND Nurse Practitioner
DX: Z01.89 Encounter for other specified special examinations (principal); K59.00 Constipation, unspecified
CPT/HCPCS: 74176

== ENCOUNTER 2022-07-25 14:51 | Emergency (ER) | payer OTHER ==
[~2022-07-25] VITALS: Ht 180.3 cm; Wt 83.9 kg
[~2022-07-25 14:51] MED LIST changes: -CARB1TAB19 PO; +CARB1TAB32 PO
[2022-07-25] MEDS ORDERED: fentaNYL INJ 100 MCG/2 ML AMP IVP STA (15:36)
[2022-07-25] MEDS ORDERED: NS IV 1000 ML 1,000 ML IV STA (15:36)
[2022-07-25 16:04] LABS: BILIRUBIN,URINE NEGATIVE (NEGATIVE); CLARITY,URINE CLEAR; COLOR,URINE YELLOW; GLUCOSE, URINE (UA) NEGATIVE (NEGATIVE); KETONES,URINE NEGATIVE (NEGATIVE); LEUKOCYTE ESTERASE ,URINE NEGATIVE (NEGATIVE); NITRITE,URINE NEGATIVE (NEGATIVE); PROTEIN,URINE NEGATIVE (NEGATIVE)
[2022-07-25 16:13] LABS: BASOPHILS % (AUTO) 0 % (0-10); EOSINOPHILS # (AUTO) 0.1 10^3/uL (0.0-0.3); EOSINOPHILS % (AUTO) 1 % (0-10); HEMATOCRIT 46 % (40-54); HEMOGLOBIN 15.2 g/dL (13.3-17.7); LYMPHOCYTES # (AUTO) 1.9 10^3/uL (1.0-4.0); LYMPHOCYTES % (AUTO) 18 % (12-44); MEAN CORPUSCULAR HEMOGLOBIN 32 pg (25-34); MEAN CORPUSCULAR HGB CONC 33 g/dL (32-36); MEAN CORPUSCULAR VOLUME 94 fL (80-99); MEAN PLATELET VOLUME 9.8 fL (9.0-12.2); MONOCYTES # (AUTO) 0.7 10^3/uL (0.0-1.0); MONOCYTES % (AUTO) 6 % (0-12); NEUTROPHILS # (AUTO) 8.1 10^3/uL (1.8-7.8); NEUTROPHILS % (AUTO) 75 % (42-75); PLATELET COUNT 222 10^3/uL (130-400); WHITE BLOOD COUNT 10.8 10^3/uL (4.3-11.0)
[2022-07-25 16:17] LABS: ALBUMIN 4.2 GM/DL (3.2-4.5); CHLORIDE 107 MMOL/L (98-107); POTASSIUM 3.8 MMOL/L (3.6-5.0); SODIUM 138 MMOL/L (135-145)
[2022-07-25 16:18] LABS: CALCIUM 9.6 MG/DL (8.5-10.1)
[2022-07-25 16:20] LABS: GLUCOSE 90 MG/DL (70-105); TOTAL PROTEIN 7.1 GM/DL (6.4-8.2)
[2022-07-25 16:21] LABS: BILIRUBIN,TOTAL 0.6 MG/DL (0.1-1.0); CARBON DIOXIDE 21 MMOL/L (21-32)
--- NOTE | 2022-07-25 16:22 | ED Abdominal Pain ---
General Chief Complaint: Abdominal/GI Problems Stated Complaint: ABD PAIN Nursing Triage Note: PT AMB TO [facility] 1 WITH COMPLAINT OF LLQ PAIN. STATES HAS HAD PAIN INTERMITTENTLY FOR A YEAR. STATES PAIN HAS WORSENED IN THE LAST 3 DAYS. HAS BEEN WORKED UP BY THE [facility] FOR SYMPTOMS. Source of Information: Patient Exam Limitations: No Limitations History of Present Illness Date Seen by Provider: Jul 25, 2022 Time Seen by Provider: 15:27 Initial Comments Here with report of left lower quadrant abdominal pain. This has been going on intermittently for a year. He has been seen at the [facility] for this and has had 2 colonoscopies. He has not had a CT scan. They do not know what is going on. He used to be on pain medicines but is off of those now. Apparently he was on 30 different medicines and they have decreased that overall. States 3 days ago he started having markedly increased pain and now it hurts whenever he moves or walks and even when sitting still he has the pain. It is in the area of the left lower quadrant anterior down into the inguinal line. Has had hernia repair on the right but nothing on the left. Denies problems with bowel movements or eating. He denies any recent injury or concerns. Denies fever chills or other constitutional symptoms. He is using a lidocaine patch over the area of concern and states that is not helping. Timing/Duration: 3-4 Days, Getting Worse Severity/Quality: Moderate, Severe, Aching, Sharp Location: LLQ Radiation: No Radiation Activities at Onset: None Modifying Factors: Worsens With Movement, Worsens With Palpation Associated Symptoms: No Back Pain, No Chest Pain, No Fever/Chills, No Fatigue, No Nausea/Vomiting, No Shortness of Air, No Weakness Allergies and Home Medications Allergies Coded Allergies: Ntmpgrq-SYE-BeX Reductase Inhibitor (Verified Allergy, Unknown, 08/03/21) baclofen (Verified Allergy, Unknown, 08/03/21) Patient Home Medication List Home Medication List Reviewed: Yes Acetaminophen (Tylenol Extra Strength) 500 Mg Tablet, 1,000 MG PO TID PRN for PAIN-MILD (1-4), (Reported) Entered as Reported by: DAVID STUART on 08/04/21 1129 Amantadine HCl (Amantadine) 100 Mg Capsule, 100 MG PO BID, (Reported) Entered as Reported by: DAVID STUART on 08/04/21 1129 Apixaban (Eliquis) 5 Mg Tablet, 5 MG PO BID Prescribed by: ORTIZ HERNANDEZ on 08/04/21 1443 Artificial Tears (Artificial Tears) 15 Ml Soln, 1-2 DROPS OU BID PRN for DRY EYES, (Reported) Entered as Reported by: DAVID STUART on 08/04/21 112 Aspirin (Aspirin EC) 81 Mg Tablet.dr, 81 MG PO DAILY, (Reported) Entered as Reported by: DAVID STUART on 08/04/21 112 Atorvastatin Calcium (Atorvastatin Calcium) 20 Mg Tablet, 10 MG PO HS, (Reported) Entered as Reported by: DAVID STUART on 08/04/21 112 Bupropion HCl (Bupropion HCl Sr) 150 Mg Tablet.er, 150 MG PO DAILY, (Reported) Entered as Reported by: DAVID STUART on 08/04/21 113 Carbidopa/Levodopa (Carbidopa-Levodopa 25-100 Tab) 1 Each Tablet, 2 EACH PO QID, (Reported) Entered as Reported by: DAVID STUART on 08/04/21 112 Cyanocobalamin (Vitamin B-12) (Vitamin B-12) 1,000 Mcg Tablet, 1,000 MCG PO DAILY, (Reported) Entered as Reported by: DAVID STUART on 08/04/21 112 Cyclobenzaprine HCl (Cyclobenzaprine HCl) 10 Mg Tablet, 5 MG PO BID PRN for MUSCLE SPASMS, (Reported) Entered as Reported by: DAVID STUART on 08/04/21 112 Donepezil HCl (Donepezil HCl) 10 Mg Tablet, 10 MG PO DAILY, (Reported) Entered as Reported by: DAVID STUART on 08/04/21 112 Famotidine (Acid Welder Fitter (FAMOTIDINE)) 20 Mg Tablet, 20 MG PO BID, (Reported) Entered as Reported by: DAVID STUART on 08/04/21 112 Folic Acid (Folic Acid) 0.4 Mg Tablet, 0.4 MG PO DAILY, (Reported) Entered as Reported by: DAVID STUART on 08/04/21 112 Gabapentin (Gabapentin) 600 Mg Tablet, 600 MG PO BID, (Reported) Entered as Reported by: DAVID STUART on 11/02/17 1129 Loratadine (Loratadine) 10 Mg Tablet, 10 MG PO DAILY PRN for ALLERGY SYMPTOMS, (Reported) Entered as Reported by: DAVID STUART on 08/04/211128 Memantine HCl (Memantine HCl) 10 Mg Tablet, 10 MG PO BID, (Reported) Entered as Reported by: DAVID STUART on 08/04/211128 Metoprolol Tartrate (Metoprolol Tartrate) 50 Mg Tablet, 25 MG PO BID, (Reported) Entered as Reported by: DAVID STUART on 08/04/211128 Mirtazapine (Mirtazapine) 45 Mg Tablet, 45 MG PO HS, (Reported) Entered as Reported by: DAVID STUART on 08/04/211128 Naproxen (Naproxen) 500 Mg Tablet, 500 MG PO BID PRN for PAIN-MILD (1-4), (Reported) Entered as Reported by: DAVID STUART on 08/04/211128 [place]-3/Dha/Epa/Fish Oil (Fish Oil 1,000 mg Softgel) 1 Each Capsule, 1 EACH PO DAILY, (Reported) Entered as Reported by: DAVID STUART on 08/04/211128 Omeprazole (Omeprazole) 20 Mg Capsule.dr, 20 MG PO DAILY, (Reported) Entered as Reported by: DAVID STUART on 08/04/211128 Oxycodone HCl/Acetaminophen (Percocet 5-325 mg Tablet) 1 Each Tablet, 1 TAB PO Q4H PRN for PAIN-MODERATE (5-7) Prescribed by: PATI TRACEY on 10/17/21 1233 Polyethylene Glycol 3350 (Miralax) 17 Gm Powd.pack, 17 GM PO DAILY PRN for CONSTIPATION-2ND LINE, (Reported) Entered as Reported by: DAVID STUART on 08/04/211128 Potassium Chloride (Potassium Chloride) 20 Meq Tablet.er, 20 MEQ PO DAILY, (Reported) Entered as Reported by: DAVID STUART on 08/04/211128 Prazosin HCl (Prazosin HCl) 1 Mg Capsule, 1 MG PO HS, (Reported) Entered as Reported by: DAVID STUART on 08/04/211128 Quetiapine Fumarate (Quetiapine Fumarate) 25 Mg Tablet, 25 MG PO HS, (Reported) Entered as Reported by: DAVID STUART on 08/04/211128 Sennosides/Docusate Sodium (Senna S Tablet) 1 Each Tablet, 2 EACH PO DAILY, ( Reported) Entered as Reported by: DAVID STUART on 08/04/211128 Sertraline HCl (Sertraline HCl) 100 Mg Tablet, 50 MG PO DAILY, (Reported) Entered as Reported by: DAVID STUART on 08/04/211128 Tamsulosin HCl (Flomax) 0.4 Mg Cap, 0.4 MG PO HS, (Reported) Entered as Reported by: DAVID STUART on 08/04/211128 Trazodone HCl (Trazodone HCl) 100 Mg Tablet, 100 MG PO HS, (Reported) Entered as Reported by: DAVID STUART on 08/04/211128 Vit C/E/Zn/Coppr/Lutein/Zeaxan (Preservision Areds 2 Softgel) 1 Each Capsule, 1 EACH PO BID, (Reported) Entered as Reported by: DAVID STUART on 08/04/211128 Review of Systems Review of Systems Constitutional: see HPI; No chills, No fever EENTM: No Nose Congestion, No Throat Pain Respiratory: Denies Cough, Denies Shortness of Air Cardiovascular: Denies Chest Pain, Denies Edema Gastrointestinal: Abdominal Pain; Denies Constipated, Denies Diarrhea, Denies Vomiting Genitourinary: Denies Discharge, Denies Flank Pain, Denies Hematuria, Denies Pain Musculoskeletal: No back pain; muscle pain; No muscle stiffness Skin: No change in color, No lesions Psychiatric/Neurological: Denies Headache, Denies Weakness All Other Systems Reviewed Negative Unless Noted: Yes Past Azvvrys-Vcbfmo-Tiqrma Hx Patient Social History Tobacco Use?: Yes Smoking Status: Current Everyday Smoker Use of E-Cig and/or Vaping dev: No Substance use?: No Alcohol Use?: No Pt feels they are or have been: No Immunizations Up To Date First/Initial COVID19 Vaccinat: 08/02 Moderna Second COVID19 Vaccination Eliazar: 08/02 Moderna Third COVID19 Vaccination Date: 08/02 Moderna Past Medical History Surgery/Hospitalization HX: bilat carpal tunnel, tonsil, lwr abd sx in [place] due injury, cataracts bilat eyes PMH: PARKINSONS Surgeries: Yes Abdominal Respiratory: No Cardiac: Yes Coronary Artery Disease, High Cholesterol, Hypertension Neurological: Yes Parkinson's Disease Genitourinary: Yes Benign Prostatic Hyperpl Gastrointestinal: No Musculoskeletal: Yes Psychosocial: Yes PTSD Family Medical History Reviewed Nursing Family Hx No Pertinent Family Hx Physical Exam Vital Signs Vital Signs - First Documented 07/25/22 15:02 Temp 36.6 Pulse 86 Resp 19 B/P (MAP) 165/122 (136) Pulse Ox 96 O2 Delivery Room Air Capillary Refill : Less Than 3 Seconds Height/Weight/BMI Height: '" Weight: lbs. oz. kg; 25.00 BMI Method: General Appearance: WD/WN, no apparent distress Neck: full range of motion, supple Respiratory: lungs clear, normal breath sounds Cardiovascular: regular rate, rhythm, no murmur Peripheral Pulses: 2+ Dorsalis Pedis (R), 2+ Left Dors-Pedis (L) Gastrointestinal: normal bowel sounds, soft; No distended; guarding; No rebound; tenderness (Left inguinal and left lower quadrant area) Extremities: normal range of motion, non-tender, no calf tenderness Back: normal inspection, no CVA tenderness, no vertebral tenderness Neurologic/Psychiatric: alert, oriented x 3 Skin: normal color, warm/dry Progress/Results/Core Measures Results/Orders Lab Results Laboratory Tests Test 07/25/22 15:50 Range/Units White Blood Count 10.8 4.3-11.0 10^3/uL Red Blood Count 4.83 4.30-5.52 10^6/uL Hemoglobin 15.2 13.3-17.7 g/dL Hematocrit 46 40-54 % Mean Corpuscular Volume 94 80-99 fL Mean Corpuscular Hemoglobin 32 25-34 pg Mean Corpuscular Hemoglobin Concent 33 32-36 g/dL Red Cell Distribution Width 13.8 10.0-14.5 % Platelet Count 222 130-400 10^3/uL Mean Platelet Volume 9.8 9.0-12.2 fL Immature Granulocyte % (Auto) 0 % Neutrophils (%) (Auto) 75 42-75 % Lymphocytes (%) (Auto) 18 12-44 % Monocytes (%) (Auto) 6 0-12 % Eosinophils (%) (Auto) 1 0-10 % Basophils (%) (Auto) 0 0-10 % Neutrophils # (Auto) 8.1 H 1.8-7.8 10^3/uL Lymphocytes # (Auto) 1.9 1.0-4.0 10^3/uL Monocytes # (Auto) 0.7 0.0-1.0 10^3/uL Eosinophils # (Auto) 0.1 0.0-0.3 10^3/uL Basophils # (Auto) 0.0 0.0-0.1 10^3/uL Immature Granulocyte # (Auto) 0.0 0.0-0.1 10^3/uL Urine Color YELLOW Urine Clarity CLEAR Urine pH 6.0 5-9 Urine Specific Erhard 1.025 H 1.016-1.022 Urine Protein NEGATIVE NEGATIVE Urine Glucose (UA) NEGATIVE NEGATIVE Urine Ketones NEGATIVE NEGATIVE Urine Nitrite NEGATIVE NEGATIVE Urine Bilirubin NEGATIVE NEGATIVE Urine Urobilinogen 0.2 < = 1.0 MG/DL Urine Leukocyte Esterase NEGATIVE NEGATIVE Urine RBC (Auto) NEGATIVE NEGATIVE Urine RBC 0-2 /HPF Urine WBC NONE /HPF Urine Squamous Epithelial Cells RARE /HPF Urine Crystals NONE /LPF Urine Bacteria TRACE /HPF Urine Casts PRESENT /LPF Urine Hyaline Casts 0-2 H /LPF Urine Mucus SMALL H /LPF Urine Culture Indicated NO Sodium Level 138 135-145 MMOL/L Potassium Level 3.8 3.6-5.0 MMOL/L Chloride Level 107 98-107 MMOL/L Carbon Dioxide Level 21 21-32 MMOL/L Anion Gap 10 5-14 MMOL/L Blood Urea Nitrogen 11 7-18 MG/DL Creatinine 0.82 0.60-1.30 MG/DL Estimat Glomerular Filtration Rate 92 BUN/Creatinine Ratio 13 Glucose Level 90 70-105 MG/DL Calcium Level 9.6 8.5-10.1 MG/DL Corrected Calcium 9.4 8.5-10.1 MG/DL Magnesium Level 1.9 1.6-2.4 MG/DL Total Bilirubin 0.6 0.1-1.0 MG/DL Aspartate Amino Transf (AST/SGOT) 14 5-34 U/L Alanine Aminotransferase (ALT/SGPT) < 6 0-55 U/L Alkaline Phosphatase 92 40-136 U/L C-Reactive Protein High Sensitivity 0.59 H 0.00-0.50 MG/DL Total Protein 7.1 6.4-8.2 GM/DL Albumin 4.2 3.2-4.5 GM/DL My Orders Orders - TEENA ARIAS MD Cbc With Automated Diff (07/25/22 15:36) Comprehensive Metabolic Panel (07/25/22 15:36) Hs C Reactive Protein (07/25/22 15:36) Magnesium (07/25/22 15:36) Ua Culture If Indicated (07/25/22 15:36) Ns Iv 1000 Ml (Sodium Chloride 0.9%) (07/25/22 15:36) Ed Iv/Invasive Line Start (07/25/22 15:36) Fentanyl Inj (Sublimaze Injection) (07/25/22 15:36) Ct Abdomen/Pelvis W (07/25/22 16:46) Iohexol Injection (Omnipaque 350 Mg/Ml 1 (07/25/22 17:00) Received Contrast (Hold Metformin- Contr (07/25/22 17:00) Ns (Ivpb) (Sodium Chloride 0.9% Ivpb Bag (07/25/22 17:00) Vital Signs/I&O 07/25/22 15:02 Temp 36.6 Pulse 86 Resp 19 B/P (MAP) 165/122 (136) Pulse Ox 96 O2 Delivery Room Air Blood Pressure Mean: 136 Progress Progress Note : Progress Note Seen and evaluated. IV, labs, normal saline 1 L bolus, fentanyl 75 mcg IV ordered. Anticipate CT scan but pending renal function as contrast will improve study if possible. Monitor patient. 1625: Renal function is okay. CT abdomen and pelvis with contrast ordered. Monitor patient. 1847: CT does not show any significant abnormality. I did discuss with him the need for further evaluation including possible MRI which I think will help elucidate the problem. I have talked to him about talking with a [facility] patient advocate as [facility]. He will call in the morning. Discharged home with return precautions. Patient verbalized understanding of instructions and agreement with plan. Diagnostic Imaging Diagonstic Imaging: CT Plain Films/CT/US/NM/MRI: abdomen, pelvis Comments [facility] [place], [place] NAME: LAWRENCE DIAZ JR [facility] REC#: [id number] PT STATUS: REG ER : 1945 PHYSICIAN: TEENA ARIAS MD ADMIT DATE: 07/25/22/ER Signed Date of Exam:07/25/22 CT ABDOMEN/PELVIS W PROCEDURE: CT abdomen and pelvis with contrast. TECHNIQUE: Multiple contiguous axial images were obtained through the abdomen and pelvis after administration of intravenous contrast. Auto Exposure Controls were utilized during the CT exam to meet ALARA standards for radiation dose reduction. All CT scans use one or more of the following dose optimizing techniques: automated exposure control, MA and/or KvP adjustment based on patient size and exam type or iterative reconstruction. INDICATION: Left lower quadrant abdominal pain. COMPARISON: 01/26/2022. FINDINGS: No focal hepatic, gallbladder, pancreatic, adrenal gland or splenic abnormality is identified. There may be mild hiatal hernia. No focal renal abnormality is seen. There is no evidence of free fluid within the abdomen or pelvis. No organized fluid collection is detected. The appendix has a normal appearance. There is no focal inflammation. Unopacified urinary bladder is unremarkable in appearance. IMPRESSION: No CT evidence of acute abdominal or pelvic abnormality. Overall, there is no significant change when compared to previous study. Dictated by: Dictated on workstation # [id number] Dict: 07/25/22 1716 Trans: 07/25/221735 [id number] [id number] Interpreted by: MAVERICK MCDONOUGH MD Electronically signed by: MAVERICK MCDONOUGH MD 07/25/221735 Departure Impression Primary Impression: Left lower quadrant abdominal pain Disposition: 01 HOME, SELF-CARE Condition: Stable Departure-Patient Inst. Decision time for Depature: 18:49 Referrals: JAMES STRICKLAND (PCP) Primary Care Physician Patient Instructions: Severe Abdominal Pain, Adult (DC) Add. Discharge Instructions: All discharge instructions reviewed with patient and/or family. Voiced understanding. It is very important that you follow-up with the [facility] for recheck and further evaluation and discuss possibility for MRI which may help determine the cause of your pain. Call the [facility] patient [facility] for help as well. Take medications as directed. Return for worse pain, fever, vomiting, weakness, breathing problems, difficulty with going to the bathroom or other concerns as needed. Scripts Oxycodone HCl/Acetaminophen (Oxycodone-Acetaminophen 5-325) 5 Mg-325 Mg Tablet 1 EACH PO Q4H PRN for PAIN-MODERATE MDD 6 for 3 Days, #12 TAB 0 Refills Prov: TEENA ARIAS MD 07/25/22 TEENA ARIAS MD Jul 25, 2022 16:22
[2022-07-25 16:23] LABS: ALKALINE PHOSPHATASE 92 U/L (40-136); CREATININE SERUM 0.82 MG/DL (0.60-1.30); GFR ESTIMATED 92
[2022-07-25 16:24] LABS: BUN/CREATININE RATIO 13
[2022-07-25 16:25] LABS: BACTERIA,URINE TRACE /HPF; HYALINE CASTS, URINE 0-2 /LPF; RBC,URINE 0-2 /HPF; SQUAMOUS EPITHELIAL CELL,UR RARE /HPF
[2022-07-25 16:26] LABS: ALANINE AMINOTRANSFERASE < 6 U/L (0-55); MAGNESIUM 1.9 MG/DL (1.6-2.4)
[2022-07-25] MEDS ORDERED: HOLD METFORMIN - RECEIVED CONTRAST 20 ML VIAL IV SCH (17:00)
[2022-07-25] MEDS ORDERED: IOHEXOL 350 MG/ML 100 ML (OMNIPAQUE 350) VIAL IV ONE (17:00)
[2022-07-25] MEDS ORDERED: NS 100 ML (IVPB) BAG IV ONE (17:00)
--- NOTE | 2022-07-25 17:29 | Diagnostic Imaging Report ---
PROCEDURE: CT abdomen and pelvis with contrast. TECHNIQUE: Multiple contiguous axial images were obtained through the abdomen and pelvis after administration of intravenous contrast. Auto Exposure Controls were utilized during the CT exam to meet ALARA standards for radiation dose reduction. All CT scans use one or more of the following dose optimizing techniques: automated exposure control, MA and/or KvP adjustment based on patient size and exam type or iterative reconstruction. INDICATION: Left lower quadrant abdominal pain. COMPARISON: 01/26/2022. FINDINGS: No focal hepatic, gallbladder, pancreatic, adrenal gland or splenic abnormality is identified. There may be mild hiatal hernia. No focal renal abnormality is seen. There is no evidence of free fluid within the abdomen or pelvis. No organized fluid collection is detected. The appendix has a normal appearance. There is no focal inflammation. Unopacified urinary bladder is unremarkable in appearance. IMPRESSION: No CT evidence of acute abdominal or pelvic abnormality. Overall, there is no significant change when compared to previous study. Dictated by: Dictated on workstation # [id number]
[2022-07-25] MEDS ORDERED: OXYC1TAB11 PO (18:50)
[2022-07-25 19:05] VITALS: BP 149/90
== END 2022-07-25 19:05 | disposition home or self-care (01) ==
LOC: EDUNIT# 14:51 → ER 14:53
DX: R10.32 Left lower quadrant pain (principal); F17.200 Nicotine dependence, unspecified, uncomplicated; Z98.890 Other specified postprocedural states
CPT/HCPCS: 36415; 74177; 80053; 81000; 83735; 85025; 86141

== ENCOUNTER → 2022-08-29 | Outpatient (CLI) | payer OTHER ==
[~2022-08-29] MED LIST changes: +OXYC1TAB11 PO
--- NOTE | 2022-08-29 13:52 | Diagnostic Imaging Report ---
CLINICAL INDICATION: Patient has chronic low back pain and increasing pain. EXAM: MRI of the lumbar spine performed without IV contrast. Sequences include sagittal T2, sagittal T1, sagittal T2 fat-sat, and axial T2. COMPARISON: None. FINDINGS: There is no acute lumbar spine fracture or dislocation. There is dextroscoliosis of the lumbar spine. There are Modic type I degenerative signal changes involving the T12 through L3 vertebrae. There are Modic type II degenerative signal changes involving the L4-L5 and L5-S1 endplates. The visualized portions of the distal thoracic spinal cord, conus medullaris, and cauda equina nerve roots are unremarkable. The conus medullaris tip is seen at the mid L1 vertebral body level. There is no significant paraspinal soft tissue abnormality. There are hypertrophic spurs throughout the lumbar spine and facet arthropathy. T12-L1: There is a diffuse disk bulge with wzgbislo-sz-omspnx loss of disk space height. There are disk spurs involving the right foraminal region. There is severe right facet arthropathy/hypertrophy and left moderate facet arthropathy. There is moderate central canal stenosis. There is prominence of the posterior epidural fat. There is no significant left neural foramen narrowing. There is severe right neural foramen narrowing. L1-L2: There is a diffuse disk bulge with severe loss of disk space height. There is superimposed small left paracentral disk extrusion/herniation with 7 mm of cephalad disk migration. There is severe bilateral facet arthropathy/hypertrophy. There is severe central canal stenosis. There is severe left neural foramen narrowing and ecctihyo-vp-jpesio right neural foramen narrowing. L2-L3: There is a diffuse disk bulge with severe loss of disk space height involving the left side of the endplates. There are hypertrophic far left lateral disk spurs. There is severe bilateral facet arthropathy/hypertrophy and ligamentum flavum buckling. There is severe central canal stenosis. There is severe left neural foramen narrowing and mild right neural foramen narrowing. L3-L4: There is subtle grade 1 retrolisthesis of L3 on L4. There is a diffuse disk bulge with moderate loss of disk space height. There is moderate bilateral facet arthropathy and ligamentum flavum buckling. There is severe central canal stenosis. There is severe right neural foramen narrowing and ljjwouhx-zz-yhhmio left neural foramen narrowing. L4-L5: There is a diffuse disk bulge and sizlqxxy-pz-pigeah loss of disk space height. There are hypertrophic far lateral disk spurs. There is severe bilateral facet arthropathy/hypertrophy and ligamentum flavum buckling. There is severe central canal stenosis, severe right neural foramen narrowing, and pkrydral-qy-okbegl left neural foramen narrowing. L5-S1: There is a diffuse disk bulge with severe loss of disk space height. There is severe right facet arthropathy and moderate left facet arthropathy. There is taxrgyio-xx-mczjog right neural foramen narrowing and severe left neural foramen narrowing. There is no significant central canal stenosis. 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 This is described above. Dictated by: Dictated on workstation # [id number]
--- NOTE | 2022-08-29 18:54 | Diagnostic Imaging Report ---
INDICATION: Unexplained weight loss, smoking history. TECHNIQUE: Multiple contiguous axial images were obtained through the chest without the use of intravenous contrast. Auto Exposure Controls were utilized during the CT exam to meet ALARA standards for radiation dose reduction. There is no previous study for comparison. FINDINGS: There are no enlarged hilar nodes or axillary nodes. There is a borderline-sized node in the anterior mediastinum measuring about 1.1 cm. There is a calcified granuloma in the right hilum anteriorly as well as a calcified granuloma in the right middle lobe. There are extensive coronary artery calcifications. There is no pleural or pericardial fluid. Lung parenchymal windows demonstrated some linear scarring in the right lower lobe. There is no discrete pulmonary parenchymal mass or infiltrate. There are some mild emphysematous changes. IMPRESSION: No pulmonary parenchymal mass or consolidation. There is some linear scarring in the superior segment of the right lower lobe. There is a borderline-sized node in the anterior mediastinum of questionable significance; would consider a follow-up study in 3-6 months. There are old granulomatous changes. There are extensive coronary artery calcifications. Dictated by: Dictated on workstation # [id number]
== END ==
LOC: RAD 12:30
PROVIDERS: ATTEND Nurse Practitioner
DX: M51.16 Intervertebral disc disorders with radiculopathy, lumbar region (principal); M51.17 Intervertebral disc disorders with radiculopathy, lumbosacral region; M41.86 Other forms of scoliosis, lumbar region; I25.10 Atherosclerotic heart disease of native coronary artery without angina pectoris; R63.4 Abnormal weight loss; Z87.891 Personal history of nicotine dependence
CPT/HCPCS: 71250; 72148

== ENCOUNTER 2023-05-20 17:50 | Emergency (ER) | payer OTHER ==
[~2023-05-20] VITALS: Ht 180 cm; Wt 77.0 kg
[~2023-05-20 17:50] MED LIST changes: +POTA-330 PO; -POTA-51 PO
--- NOTE | 2023-05-20 18:24 | ED General ---
General Chief Complaint: Cough/Cold/Flu Symptoms Stated Complaint: COUGH, Nursing Triage Note: ARRIVED VIA AMB FROM HOME WITH COMPLAINTS OF A COUGH AND SINUS DRAINAGE STARTING ON SATURDAY. STATES HE HAD PNEUMONIA 3 WEEKS AGO. Source of Information: Patient Exam Limitations: No Limitations History of Present Illness Date Seen by Provider: May 20, 2023 Time Seen by Provider: 18:04 Initial Comments This is a 77-year-old gentleman presents to the emergency room via private vehicle with concerns about cough and congestion since May 17. He states he feels like he has pneumonia. His cough is productive of "green slime." He feels like he cannot take a deep breath, so much so that he cannot even blow his nose. He denies any noted fever but has not taken his temperature. He reports feeling "very strange" on Saturday. He had some nausea with near vomiting last week prior to Saturday. Over a week ago he experienced 3 weeks of diarrhea. He has headache with this current syndrome but denies chest pain. Vital signs are normal during assessment. Oropharynx appears dry and he reports sore throat. His primary care provider is the [facility] in [place]. His litigator is Dr. Fitch. He reports having an episode of A-fib RVR for which he was admitted here after receiving a COVID-19 vaccination in July 2021. He does not appear to be presently anticoagulated. Allergies and Home Medications Allergies Coded Allergies: Mmznrlz-FJW-HvP Reductase Inhibitor (Verified Allergy, Unknown, 08/03/21) baclofen (Verified Allergy, Unknown, 08/03/21) Patient Home Medication List Home Medication List Reviewed: Yes Acetaminophen (Tylenol Extra Strength) 500 Mg Tablet, 1,000 MG PO TID PRN for PAIN-MILD (1-4), (Reported) Entered as Reported by: DAVID STUART on 08/04/21 1129 Amantadine HCl (Amantadine) 100 Mg Capsule, 100 MG PO BID, (Reported) Entered as Reported by: DAVID STUART on 08/04/21 1129 Apixaban (Eliquis) 5 Mg Tablet, 5 MG PO BID Prescribed by: ORTIZ HERNANDEZ on 08/04/21 1443 Artificial Tears (Artificial Tears) 15 Ml Soln, 1-2 DROPS OU BID PRN for DRY EYES, (Reported) Entered as Reported by: DAVID STUART on 08/04/21 112 Aspirin (Aspirin EC) 81 Mg Tablet.dr, 81 MG PO DAILY, (Reported) Entered as Reported by: DAVID STUART on 08/04/21 112 Atorvastatin Calcium (Atorvastatin Calcium) 20 Mg Tablet, 10 MG PO HS, (Reported) Entered as Reported by: DAVID STUART on 08/04/21 112 Bupropion HCl (Bupropion HCl Sr) 150 Mg Tablet.er, 150 MG PO DAILY, (Reported) Entered as Reported by: DAVID STUART on 08/04/21 113 Carbidopa/Levodopa (Carbidopa-Levodopa 25-100 Tab) 1 Each Tablet, 2 EACH PO QID, (Reported) Entered as Reported by: DAVID STUART on 08/04/211128 Cefdinir (Cefdinir) 300 Mg Capsule, 300 MG PO BID Prescribed by: DEREK JOHNS on 05/20/232015 Cyanocobalamin (Vitamin B-12) (Vitamin B-12) 1,000 Mcg Tablet, 1,000 MCG PO DAILY, (Reported) Entered as Reported by: DAVID STUART on 08/04/211128 Cyclobenzaprine HCl (Cyclobenzaprine HCl) 10 Mg Tablet, 5 MG PO BID PRN for MUSCLE SPASMS, (Reported) Entered as Reported by: DAVID STUART on 08/04/21 112 Donepezil HCl (Donepezil HCl) 10 Mg Tablet, 10 MG PO DAILY, (Reported) Entered as Reported by: DAVID STUART on 08/04/21 112 Famotidine (Acid Psychiatric Aide Instructor (FAMOTIDINE)) 20 Mg Tablet, 20 MG PO BID, (Reported) Entered as Reported by: DAVID STUART on 08/04/21 112 Folic Acid (Folic Acid) 0.4 Mg Tablet, 0.4 MG PO DAILY, (Reported) Entered as Reported by: DAVID STUART on 08/04/21 112 Gabapentin (Gabapentin) 600 Mg Tablet, 600 MG PO BID, (Reported) Entered as Reported by: DAVID STUART on 08/04/21 112 Loratadine (Loratadine) 10 Mg Tablet, 10 MG PO DAILY PRN for ALLERGY SYMPTOMS, (Reported) Entered as Reported by: DAVID STUART on 08/04/211128 Memantine HCl (Memantine HCl) 10 Mg Tablet, 10 MG PO BID, (Reported) Entered as Reported by: DAVID STUART on 08/04/211128 Metoprolol Tartrate (Metoprolol Tartrate) 50 Mg Tablet, 25 MG PO BID, (Reported) Entered as Reported by: DAVID STUART on 08/04/211128 Mirtazapine (Mirtazapine) 45 Mg Tablet, 45 MG PO HS, (Reported) Entered as Reported by: DAVID STUART on 08/04/211128 Naproxen (Naproxen) 500 Mg Tablet, 500 MG PO BID PRN for PAIN-MILD (1-4), (Reported) Entered as Reported by: DAVID STUART on 08/04/211128 [place]-3/Dha/Epa/Fish Oil (Fish Oil 1,000 mg Softgel) 1 Each Capsule, 1 EACH PO DAILY, (Reported) Entered as Reported by: DAVID STUART on 08/04/211128 Omeprazole (Omeprazole) 20 Mg Capsule.dr, 20 MG PO DAILY, (Reported) Entered as Reported by: DAVID STUART on 08/04/211128 Oxycodone HCl/Acetaminophen (Percocet 5-325 mg Tablet) 1 Each Tablet, 1 TAB PO Q4H PRN for PAIN-MODERATE (5-7) Prescribed by: PATI TRACEY on 10/17/21 1233 Oxycodone HCl/Acetaminophen (Oxycodone-Acetaminophen 5-325) 5 Mg-325 Mg Tablet, 1 EACH PO Q4H PRN for PAIN-MODERATE Prescribed by: TEENA ARIAS on 07/25/22 1851 Polyethylene Glycol 3350 (Miralax) 17 Gm Powd.pack, 17 GM PO DAILY PRN for CONSTIPATION-2ND LINE, (Reported) Entered as Reported by: DAVID STUART on 08/04/211128 Potassium Chloride (Potassium Chloride) 20 Meq Tablet.er, 20 MEQ PO DAILY, (Reported) Entered as Reported by: DAVID STUART on 08/04/211128 Prazosin HCl (Prazosin HCl) 1 Mg Capsule, 1 MG PO HS, (Reported) Entered as Reported by: DAVID STUART on 08/04/211128 Quetiapine Fumarate (Quetiapine Fumarate) 25 Mg Tablet, 25 MG PO HS, (Reported) Entered as Reported by: DAVID STUART on 08/04/211128 Sennosides/Docusate Sodium (Senna S Tablet) 1 Each Tablet, 2 EACH PO DAILY, (Reported) Entered as Reported by: DAVID STUART on 08/04/211128 Sertraline HCl (Sertraline HCl) 100 Mg Tablet, 50 MG PO DAILY, (Reported) Entered as Reported by: DVAID STUART on 08/04/211128 Tamsulosin HCl (Flomax) 0.4 Mg Cap, 0.4 MG PO HS, (Reported) Entered as Reported by: DAVID STUART on 08/04/211128 Trazodone HCl (Trazodone HCl) 100 Mg Tablet, 100 MG PO HS, (Reported) Entered as Reported by: DAVID STUART on 08/04/211128 Vit C/E/Zn/Coppr/Lutein/Zeaxan (Preservision Areds 2 Softgel) 1 Each Capsule, 1 EACH PO BID, (Reported) Entered as Reported by: DAVID STUART on 08/04/211128 Review of Systems Review of Systems Constitutional: see HPI EENTM: no symptoms reported Respiratory: see HPI Cardiovascular: see HPI Gastrointestinal: see HPI Genitourinary: no symptoms reported Musculoskeletal: no symptoms reported Skin: no symptoms reported Psychiatric/Neurological: No Symptoms Reported Hematologic/Lymphatic: No Symptoms Reported Immunological/Allergic: no symptoms reported Past Zmjhdii-Flmaqp-Zxozfy Hx Patient Social History Tobacco Use?: Yes Tobacco type used: Cigarettes Substance use?: No Alcohol Use?: No Immunizations Up To Date First/Initial COVID19 Vaccinat: 08/02 Moderna Second COVID19 Vaccination Eliazar: 08/02 Moderna Third COVID19 Vaccination Date: 08/02 Moderna Past Medical History Surgery/Hospitalization HX: bilat carpal tunnel, tonsil, lwr abd sx in [place] due injury, cataracts bilat eyes PMH: PARKINSONS Surgeries: Yes Abdominal Respiratory: No Cardiac: Yes Coronary Artery Disease, High Cholesterol, Hypertension Neurological: Yes Parkinson's Disease Genitourinary: Yes Benign Prostatic Hyperpl Gastrointestinal: No Musculoskeletal: Yes Psychosocial: Yes PTSD Family Medical History No Pertinent Family Hx Physical Exam Vital Signs Vital Signs - First Documented 05/20/23 17:55 Temp 36.9 Pulse 69 Resp 16 B/P (MAP) 125/94 (104) Pulse Ox 94 O2 Delivery Room Air Capillary Refill : Less Than 3 Seconds Height, Weight, BMI Height: '" Weight: lbs. oz. kg; 23.00 BMI Method: General Appearance: No Apparent Distress, WD/WN HEENT: PERRL/EOMI, Normal ENT Inspection, Other (Oropharynx somewhat dry) Neck: Normal Inspection; No JVD Respiratory: Lungs Clear, No Accessory Muscle Use, No Respiratory Distress; No Crackles; Decreased Breath Sounds; No Wheezing Cardiovascular: Regular Rate, Rhythm, No Edema, No Murmur Gastrointestinal: Non Tender, Soft Extremity: Normal Inspection, No Pedal Edema Neurologic/Psychiatric: Alert, Oriented x3, No Motor/Sensory Deficits, Normal Mood/Affect Skin: Normal Color, Warm/Dry Progress/Results/Core Measures Suspected Sepsis SIRS Temperature: Pulse: 69 Respiratory Rate: 16 Blood Pressure 125 /94 Mean: 104 Results/Orders Lab Results Laboratory Tests Test 05/20/23 18:16 Range/Units Influenza Type A (RT-PCR) Not Detected Not Detecte Influenza Type B (RT-PCR) Not Detected Not Detecte SARS-CoV-2 RNA (RT-PCR) Not Detected Not Detecte My Orders Orders - DEREK DELEON MD Chest Pa/Lat (2 View) (05/20/23 18:14) Covid 19 Inhouse Test (05/20/23 18:14) Influenza A And B By Pcr (05/20/23 18:14) Cefdinir Capsule (Cefdinir Capsule) (05/20/23 19:45) Medications Given in ED Vital Signs/I&O 05/20/23 05/20/23 17:55 21:00 Temp 36.9 36.8 Pulse 69 66 Resp 16 B/P (MAP) 125/94 (104) 113/92 Pulse Ox 94 93 O2 Delivery Room Air Room Air Capillary Refill : Less Than 3 Seconds Blood Pressure Mean: 104 Progress Note : Progress Note Patient was interviewed and examined at 1804. Exam was relatively unremarkable. Influenza and COVID-19 swabs were negative. Chest x-ray was suggestive for right-sided pneumonia. There is patchy infiltrate in the right upper lung by my interpretation. Radiologist's report was reviewed as below. Vital signs were normal on assessment and remained normal. Patient was not in any distress. Treatment with Omnicef for community-acquired pneumonia was initiated in the ER and prescribed. Azithromycin and fluoroquinolones were avoided due to possible interactions with other medications. See discharge instructions for further discussion. Diagnostic Imaging Diagonstic Imaging: Xray Plain Films/CT/US/NM/MRI: chest Comments NAME: LAWRENCE DIAZ JR [facility] REC#: [id number] PT STATUS: REG ER : 1945 PHYSICIAN: DEREK DELEON MD ADMIT DATE: 05/20/23/ER Signed Date of Exam:05/20/23 CHEST PA/LAT (2 VIEW) CHEST PA/LAT (2 VIEW) INDICATION: Cough, SOA. COMPARISON: CT of the chest on 08/29/2022. FINDINGS: Patchy airspace opacities in the right lung. Normal heart size. Pulmonary vascularity is within normal limits. No pleural effusion or pneumothorax. No acute osseous findings. IMPRESSION: Patchy airspace opacities in the right lung concerning for infection. Dictated by: Dictated on workstation # [id number] Dict: 05/20/231930 Trans: 05/20/231931 [facility] [id number] Interpreted by: GARRTET NAVA DO Electronically signed by: GARRETT NAVA DO 05/20/231931 Departure Impression Primary Impression: Pneumonia Qualified Codes: J18.9 - Pneumonia, unspecified organism Disposition: HOME, SELF-CARE Condition: Stable Departure-Patient Inst. Decision time for Depature: 20:15 Referrals: NO,LOCAL PHYSICIAN (PCP) Primary Care Physician JAMES STRICKLAND (Family) Primary Care Physician Patient Instructions: Community-acquired pneumonia in adults Add. Discharge Instructions: Complete your antibiotics as prescribed. Be sure you are drinking plenty of water, especially while it is hot and humid. Please follow-up with your primary care provider in a few days for repeat examination. Return to the emergency room if you have worsening symptoms. All discharge instructions reviewed with patient and/or family. Voiced understanding. Scripts Cefdinir (Cefdinir) 300 Mg Capsule 300 MG PO BID, #20 CAP Prov: DEREK DELEON MD 05/20/23 DEREK DELEON MD May 20, 2023 18:24
--- NOTE | 2023-05-20 19:33 | Diagnostic Imaging Report ---
CHEST PA/LAT (2 VIEW) INDICATION: Cough, SOA. COMPARISON: CT of the chest on 08/29/2022. FINDINGS: Patchy airspace opacities in the right lung. Normal heart size. Pulmonary vascularity is within normal limits. No pleural effusion or pneumothorax. No acute osseous findings. IMPRESSION: Patchy airspace opacities in the right lung concerning for infection. Dictated by: Dictated on workstation # [id number]
[2023-05-20] MEDS ORDERED: CEFDINIR 300 MG CAPSULE PO ONE (19:45)
[2023-05-20] MEDS ORDERED: CEFD300C3 PO (20:16)
[2023-05-20 21:00] VITALS: BP 113/92
== END 2023-05-20 21:00 | disposition home or self-care (01) ==
LOC: EDUNIT# 17:50 → ER 17:52
DX: J18.9 Pneumonia, unspecified organism (principal); F17.210 Nicotine dependence, cigarettes, uncomplicated; Z20.822 Contact with and (suspected) exposure to COVID-19
CPT/HCPCS: 71046; 87636